=== PATIENT | female | born 1960 | race Caucasian/White ===

== ENCOUNTER 2024-08-25 07:59 | Outpatient (REF) | payer BC, SELFPAY ==
--- OUTSIDE RECORDS SUMMARY | 2024-08-25 08:06 | XMS_ITS | Patient Health Record ---
Author Organization [facility] [address] Address [address] [place] [address] Care Team Providers Care Regional Facilities Manager Name Role Phone YANG, LANCEBRYSON Primary Care Provider ZHANE VILLEDA Unavailable [phone] SARAH VALDIVIA Unavailable [phone] Allergies Allergen (clinical drug ingredient) Drug/Non Drug Allergy documented on EMR Reaction Allergy Type Onset Date Status penicillin G Penicillin G Sodium Unknown Drug Allergy Active Results Component Value Reference Range Notes MR Brain WO Reviewed date:09/21/2023 09:57:49 AM Interpretation: Performing Lab: Notes/Report: Original Ordering Provider: ZHANE VILLEDA [employer] INSPECTOR [facility] US ABDOMEN LIMITED Reviewed date:05/22/2024 01:16:26 PM Interpretation: Performing Lab: Notes/Report: Note See Note [facility], a member of [employer] Patient Name: ANNETTE JOHNSON Date of : 1960 Reason for Exam: Right upper quadrant abdominal pain, fatty liver Exam Date: 05/22/2024 [id number] EST Report Status: Final Ordering Provider: LSIA CHAHAL PCP: SARAH VALDIVIA Exam: Right upper quadrant abdominal ultrasound History: Right upper quadrant abdominal pain, fatty liver Technique: Ledbetter scal e and color Doppler imaging was utilized. Comparison: None FINDINGS: Liver: Increased in echotexture. Liver measures 17.7 cm.There is no evidence of intrahepatic biliary ductal dilation. There is no ascites. Gallbladder: status post cholecystectomy Common bile duct: measures 0.4 cm. Right kidney: measur es 13.1 cm in length and is sonographically unremarkable. There is no hydronephrosis. Pancreas: The visualized pancreatic parenchyma is unremarkable. The pancreatic head and tail were not visualized due to overlying bowel gas. IMPRESSION: Hepatic steatosis -------- FINAL REPOR T -------- Dictated By: Audra Nam Dictated Date: 05/22/2024 09:42 ET Assigned Physician: Audra Nam Reviewed and Electronically Signed By: Adura Nam Signed Date: 025 10:02 ET Workstation ID: [id number] Transcribed By: Self Edit Transcribed Date: 05/22/2024 09:42 ET MICROALBUMIN CREATININE URIN E RATIO Reviewed date:01/20/2024 11:00:40 AM Interpretation: Performing Lab: Notes/Report: Creatinine, Urine 96.0 Microalb, Ur 103.0 0.0-29.0 mg/L Microalb/Creat Ratio 107 <30 mg/g creat HEMOGLOBIN A1C Reviewed date:01/10/2024 11:52:34 AM Interpretation: Performing Lab: Notes/Report: Hemoglobin A1C 6.7 <6.5 % Mean Bld Glu Estim. 146 THYROID STIMULATING HORMONE WITH REFLEX TO FREE T4 AND FREE T3 Reviewed date:01/16/2024 11:43:03 AM Interpretation: Performing Lab: Notes/Report: TSH 0.57 0.40-4.00 mcIU/mL COMPREHENSIVE METABOLIC PANE L Reviewed date:01/16/2024 11:42:43 AM Interpretation: Performing Lab: Notes/Report: Sodium 139 133-145 mmol/L Potassium 4.5 3.5-5.5 mmol/L Chloride 107 96-110 mmol/L CO2 27 21-32 mmol/L Anion Gap 5 3-11 Glucose 127 70-100 mg/dL BUN 17 5-25 mg/dL Creatinine 0.72 0.50-1.10 mg/dL eGFR 95 >=60 mL/min/1.73m2 Calculation based on the?Chronic Kidney Disease Epidemiology Collaboration (CKD-EPI) equation refit?without adjustment for race. BUN/Creatinine Ratio 23.6 Calcium 9.6 8.5-10.5 mg/dL AST (SGOT) 18 10-42 unit/L ALT (SGPT) 30 10-60 unit/L Alkaline Phosphatase 41 42-121 unit/L Total Protein 6.5 6.0-8.0 g/dL Albumin 3.6 3.2-5.0 g/dL Total Bilirubin 0.4 0.0-1.4 mg/dL LIPID PANEL WITH REFLEX TO D IRECT LDL Reviewed date:01/16/2024 11:42:49 AM Interpretation: Performing Lab: Notes/Report: Cholesterol 185 0-200 mg/dL Triglycerides 234 0-150 mg/dL HDL 41 >=40 mg/dL LDL Calculated 97 0-100 mg/dL VLDL Cholesterol Alirio 46.8 Non HDL Chol. (LDL+VLDL) 144 <145 mg/dL Chol/HDL Ratio 4.5 0.0-4.4 CBC WITH AUTO DIFF Reviewed date:10/29/2023 09:48:23 AM Interpretation: Performing Lab: Notes/Report: Original Ordering Provider: ZHANE VILLEDA [employer], [place] [address] Puppy Sitter - Alison Combs MD WBC 6.7 4.8-10.8 x10-3/uL RBC 4.8 3.8-4.8 x10-6/uL HEMOGLOBIN 13.4 11.5-16.0 g/dL HEMATOCRIT 41.8 35-47 % MCV 87.6 79-98 fL MCH 28.1 27-32 pg MCHC 32.1 32-37 g/dL RDW 13.3 11-15 % PLT COUNT 206 130-400 x10-3/uL MEAN PLATELET VOLUME 10.2 7-11 fL NRBC % AUTO 0.0 <1 % NEUT % 54.7 LYMPH % 30.3 MONO % 9.1 EOS % 4.6 BASO % 0.9 IMMATURE GRANULOCYTES % 0.4 NRBC # AUTO 0.00 <0.1 x10-3/uL ABSOLUTE NEUT 3.69 1.5-7.0 x10-3/uL LYMPH # 2.04 1-5.0 x10-3/uL MONO # 0.61 0.2-1.0 x10-3/uL EOS # 0.31 0-0.5 x10-3/uL BASO # 0.06 0-0.2 x10-3/uL IMMATURE GRANULOCYTES # 0.03 0-0.03 x10-3/uL TSH Reviewed date:10/29/2023 10:50:12 AM Interpretation: Performing Lab: Notes/Report: Original Ordering Provider: ZHANE VILLEDA NP TSH 0.92 0.40-4.00 uIU/ml METHYLMALONIC ACID SERUM Reviewed date:11/03/2023 03:20:39 PM Interpretation: Performing Lab: Notes/Report: Note Original Ordering Provider: ZHANE VILLEDA NP [employer], a member of [address] [address] Puppy Sitter - Alison Combs MD METHYLMALONIC ACID 0.16 <0.40 umol/L If applicable, any drug confirmation testing reported here was developed and the performance characteristics determined by [facility]. This confirmation testing has not been cleared or approved by the FDA. The laboratory is regulated under CLIA as qualified to perform high-complexity testing. This test is used for patient testing purposes. It should not be regarded as investigational or for research. Test performed at [facility], [facility] [address] [place] [id number] Lora Nuñez MD, PhD - Puppy Sitter Note Original Ordering Provider: ZHANE VILLEDA NP [employer], a member of [address] [address] Pupp[employer]itter - Alison Combs MD TREPONEMAL AB Reviewed date:10/29/2023 10:50:12 AM Interpretation: Performing Lab: Notes/Report: TREPONEMAL AB NEGATIVE NEGATIVE Note [employer], a member of [address] [address] P[employer]itter - Alison Combs MD Reason For Referral Reason Dr Lou Diagnosis 1 Weakness of left low er extremity (R29.898) Diagnosis 2 Paresthesia of skin (R20.2) Referral Organization [facility] [address] Referring Provider First Name ZHANE Referring Provider Last Name RONAL Referring Provider Speciality Internal M edicine Referred Provider Specialty Neurology General Notes MIGUEL CUADRA 09/06 01:00:56 PM > faxed referral to Dr Lou p: [phone] f: [phone] Referral Priority Routine Reason Pt needing referral to neurology Diagnosis 1 Paresthesia of skin (R20.2) Diagnosis 2 Weakness of left low er extremity (R29.898) Referral Organization [facility] [address] Referring Provider First Name MERCY Referring Provider Last Name YANG Referring Provider Speciality Internal M edicine Referred Provider Specialty Neurology General Notes faxed to , ap mancia M.D , [address] [place] [address] [facility], [facility], fax - [phone], phone- [phone] Clinical Notes Anita Lundy 09/16 02:49:23 PM >, Milton Pierce 10/08/2023 11:50:53 AM > The patient is scheduled for an appointment on Oct 15 at 9 am. Pt is aware Referral Priority Routine Reason Dr. North Diagnosis 1 Abdominal pain, unsp ecified abdominal location (R10.9) [facility] [address] Referring Provider First Name SARAH Referring Provider Last Name SKIP Referring Provider Speciality Internal M edicine Referred Provider Ceasar NORTH Referred Provider Specialty Gastroentero logy General Notes BUTRON CUADRAIYA 04/24 11:10:38 AM > faxed referral to Dr Osborne with office notes & gave pt phone # to call for appt Clinical Notes Milton Pierce 09/2024 03:23:45 PM > The patient was seen on 05/12/24 Referral Priority Routine Medications Medication SIG (Take, Route, Frequency, Duration) Notes Start Date End Date Status Mounjaro 7.5 MG/0.5ML as directed Subcutaneous weekly Active metFORMIN HCl 1000mg bid Activ e Farxiga 5 MG Oral for 90 Days Active Fenofibrate 145 mg TAKE 1 TABLET DAILY oral daily for 90 days Active Metoprolol Tartrate 50 mg TAKE 1 TABLET DAILY WITH FOOD Active CeleBREX 200 MG 1 capsule with food Orally Once a day for 10 days Active Citalopram Hydrobromide 10 MG 1 tablet Orally Once a day for 30 days take with 20mg tablet for a total of 30mg once daily 02/24/2024 Not-Taking Fish Oil 1000 MG 1 capsule Orally Three times a day Active Citalopram Hydrobromide 20 MG 1 tablet Orally Once a day for 30 days 02/24/2024 Not-Taking Vitamin B12 100 MCG as directed Orally Active Citalopram Hydrobromide 30 MG 1 tablet Orally Once a day for 30 days 09/29/2020 Not-Taking Atorvastatin Calcium 40 mg TAKE 1 TABLET DAILY Not-Taki ng Claritin 10 MG 1 tablet Orally Once a day Not-Taking Fluticasone Propionate 50 MCG/ACT 1 spray in each nostril Nasally Once a day for 30 days Not-Taking Lisinopril 40 mg TAKE 1 TABLET DAILY Active Immunizations Vaccine Route Administration Date Status Comme nts influenza IM Intramuscular 12/07/2019 Administered SHINGRIX IM Intramuscular 03/25/2023 Administered Social History Tobacco Use: Social History Observation Description Date Details (start date - stop date) Former Smoker NA - NA Tobacco Use/Smoking Question Answer Notes Are you a former smoker Problems Problem Type SNOMED Code ICD Code Onset Dates Problem Status W/U Status Risk Notes Problem Hypothyroidism (18456362) Hypothyroidism, unspecified (E03.9) Active confirmed Problem 06991319 Type 2 diabetes mellitus with unspecified complications (E11.8) Active confirmed Problem Type II diabetes mellitus without complication (643341157) Type 2 diabetes mellitus without complications (E11.9) Active confirmed Problem 63593542 Vitamin D defici ency, unspecified (E55.9) Active confirmed Problem 368687695 Mixed hyperlipid emia (E78.2) Active confirmed Problem Hyperlipidemia (01149841) Hyperlipidemia, unspecified (E78.5) Active confirmed Problem Fear of flying (095477567) 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) Active confirmed Problem Essential hypertension (63278121) Essential (primary) hypertension (I10) Active confirmed Problem Fatty liver (426955130) Fatty (change of) liver, not elsewhere classified (K76.0) Active confirmed Problem Osteoarthritis of knee (095228127) Osteoarthritis of knee, unspecified (M17.9) Active confirmed Problem 93720164 Paresthesia of s kin (R20.2) Active confirmed Problem Adult health examination (507183331) Encounter for general adult medical examination without abnormal findings (Z00.00) Active confirmed Problem Colon cancer screening (756038086) Colon cancer screening (Z12.11) Active confirmed Problem 38637442 Hyperlipidemia, unspecified hyperlipidemia type (E78.5) Active confirmed Problem Anxiety (34687066) Anxiety (F41.9) Active confirmed Problem 26863936 Memory loss (R41.3) Active confirmed Problem 04986817 Abdominal pain, unspecified abdominal location (R10.9) Active confirmed Problem 152637146 Seasonal allergi es (J30.2) Active confirmed Problem 117317589 Pre-diabetes (R73.03) Active confirme d Problem Arthritis of left knee (8903722034712951 ) Arthritis of knee, left (M17.12) Active confirmed Problem Suspected disease caused by Severe acute respiratory coronavirus 2 (situation) (511742891) Encounter for screening for COVID-19 (Z11.52) Active confirmed Problem 195221986 Hypertriglycerid emia (E78.1) Active confirmed Problem Asthma (731386260) Asthma (J45.909) Active confirmed Problem 874438331 Multinodular goi ter (E04.2) Active confirmed Problem 273447369465945 Weakness of left lower extremity (R29.898) Active confirmed Vital Signs Heart Rate 88 /min 04/24/2024 Oximetry 97 % 04/24/2024 Blood pressure diastolic 80 mm Hg 04/24/2024 Height 66 in 04/24/2024 Blood pressure systolic 140 mm Hg 04/24/2024 Weight 162 lbs 04/24/2024 BMI 26.14 kg/m2 04/24/2024 Encounters Encounter Location Date Provider Diagnosis [facility] [address] [place] [address] 09/07/2023 ZHANE VILLEDA Paresthesia of left lower extremity R20.2 ; Weakness of left lower extremity R29.898 and Memory loss R41.3 [facility] [address] [address] 10/30/2023 ZHANE VILLEDA Type 2 diabetes mila itus without complications E11.9 ; Hyperlipidemia, unspecified E78.5 ; Fatty (change of) liver, not elsewhere classified K76.0 ; Anxiety F41.9 ; Hypertriglyceridemia E78.1 ; Vitamin D deficiency, unspecified E55.9 ; Memory loss R41.3 ; Paresthesia of left lower extremity R20.2 ; Encounter for general adult medical examination without abnormal findings Z00.00 and Encounter for screening for other suspected endocrine disorder Z13.29 [facility] [address] [facility] [address] [place] [address] 04/07/2024 SARAH VALDIVIA Myalgia M79.10 ; Typ e 2 diabetes mellitus without complications E11.9 ; Essential (primary) hypertension I10 ; Mixed hyperlipidemia E78.2 ; Seasonal allergies J30.2 and Anxiety F41.9 [facility] [address] [address] 04/24/2024 SARAH VALDIVIA Annual physical exam Z00.00 ; Type 2 diabetes mellitus without complications E11.9 ; Essential (primary) hypertension I10 ; Hypertriglyceridemia E78.1 ; Multinodular goiter E04.2 ; Seasonal allergies J30.2 ; Anxiety F41.9 ; Lumbar back pain M54.50 ; Generalized abdominal pain R10.84 ; Depression screening Z13.31 and Screening for substance abuse Z13.89 [facility] [address] [address] 09/02/2023 ZHANE RONAL Acute non-recurrent frontal sinusitis J01.10 [facility] [address] [address] 09/17/2023 ZHANEERI STANLEYT [facility] [address] [address] 09/23/2023 TALBRYSON KASPERAN [facility] [address] [address] 10/08/2023 TALAL YANG [facility] [address] [address] 10/24/2023 ZHANE LIZETHT [facility] [address] 01/24/2024 ZHANE VILLEDA Type 2 diabetes mila itus without complications E11.9 and Acute non-recurrent frontal sinusitis J01.10 [facility] [address] [address] 01/24/2024 ZHANE SCOUTHORose Marie Acute non-recurrent frontal sinusitis J01.10 [facility] [address] [address] 01/28/2024 ZHANE BORHOT Acute non-recurrent frontal sinusitis J01.10 [facility] [address] [address] 02/21/2024 ZHANE SCOUTHOT Acute non-recurrent frontal sinusitis J01.10 [facility] [address] [address] 02/24/2024 ZHANE STANLEYT [facility] [address] [facility] [address] [place] [address] 02/24/2024 ZHANE STANLEYT [facility] [address] [facility] [address] [place] [address] 03/24/2024 MERCY YANG [facility] [address] [facility] [address] [place] [address] 04/07/2024 ZHANE BUTTERFIELDHOT [facility] [address] [facility] [address] [place] [address] 04/07/2024 ZHANE BUTTERFIELDHOT [facility] [address] [facility] [address] [place] [address] 04/24/2024 SARAH VALDIVIA [facility] [address] [facility] [address] [place] [address] 05/07/2024 SARAH CISNEROSKS [facility] [address] [facility] [address] [place] [address] 05/14/2024 SARAH VALDIVIA [facility] [address] [facility] [address] [place] [address] 06/09/2024 ZHANE VILLEDA Assessments Encounter Date Diagnosis (ICD Code) Assessment Notes Treatment Notes Treatment Clinical Notes Section Notes 04/07/2024 Myalgia (ICD-10 - M79.10) Annette is a 63-year-old female with history of multiple medical conditions including type 2 diabetes, anxiety, arthritis, hyperlipidemia, seasonal allergies, hypertension, hypothyroidism who presents today for urgent care visit for left lower extremity pain for the past several days. Reporting sensation of cramping and increased sensitivity to left calf. Associated left hip pain chronic in nature. Reports no swelling of left lower extremity. No recent surgeries, air travel, or prolonged immobilization. On physical exam patient well-appearing and in no acute distress. Vital signs within normal limits. Cardiopulmonary exam unremarkable. On musculoskeletal exam no visible deformities to lower extremities. Negative straight leg raise test bilaterally. No tenderness to palpation of knees bilaterally. Range of motion performed passively with bilateral hips without tenderness. Bilateral calves without pitting edema or visible swelling and are nontender to palpation. Mild tenderness appreciated upon palpation of left lateral hip area of trochanteric bursa. Given clinical presentation likely suspect uncomplicated myalgia. Low likelihood for DVT given lack of predisposing factors and reassuring physical exam. Less likely to be sciatica given negative straight leg raise test. Likely a superimposing trochanteric bursitis causing hip pain. At this time we will treat symptomatically with Celebrex 200 mg 1 capsule daily for 10 days. Discussed proper use of the medication and potential side effect profile including but not limited to headache, dyspepsia, abdominal pain, diarrhea. Patient has follow-up scheduled with her orthopedist at the end of April for further management. Discussed red flag signs requiring ED evaluation. Patient demonstrates understanding, all questions answered at this time. # Type 2 diabetes: Hemoglobin A1c of 6.7% on 01/07/2024. Continue metformin 1000 mg twice daily. Continue Mounjaro 7.5 mg subcutaneous injection weekly. Discussed importance of diet and lifestyle for management of diabetes. Emphasize importance of annual eye exam and regular feet checks. Will continue to monitor. # Hypertension: Blood pressure stable in office 138/78. Continue lisinopril 40 mg daily. Continue metoprolol 50 mg once daily with food. Discussed red flag signs of hypertension. Will continue to monitor. # Hyperlipidemia: Last lipid panel obtained 01/07/2024 with values including cholesterol 185, triglycerides 234, HDL 41, LDL 97, and cholesterol HDL ratio 4.5. Continue fenofibrate 145 mg once daily. Continue atorvastatin 10 mg daily. Will continue to monitor. # Seasonal allergies: Continue Flonase 1 sprays nostril daily. Continue Claritin 10 mg once daily. Will continue to monitor. # Anxiety: Stable mood in office. Continue escitalopram 30 mg once daily. Will continue to monitor. All questions have been answered to patient's satisfaction. Patient verbalized understanding of diagnosis and treatments explained. Advised to call sooner prior to next visit it any questions/concerns arise. Case discussed with collaborating physician Genaro Yang who reviewed the assessment and plan. Chart, medications, labs, vital signs reviewed. Dictation was accomplished with the use of [employer]ie voice recognition software, which is prone to medical misidentifications and grammatical errors. This are unintentional and the practitioner does try to identify and correct these, but some could still be present. Please do not hesitate to contact practitioner for clarification. 04/24/2024 Type 2 diabetes mellitus without complications (ICD-10 - E11.9) Patient seen and examined. Comprehensive discussion was done on the following. # Type 2 diabetes: Hemoglobin A1c of 6.7% on 01/07/2024. Continue metformin 1000 mg twice daily. Continue Mounjaro 7.5 mg subcutaneous injection weekly. Continue Farxiga 5 mg daily. Patient has follow-up every 6 months with endocrinology who also manages her diabetes. Discussed importance of diet and lifestyle for management of diabetes. Emphasize importance of annual eye exam and regular feet checks. Will continue to monitor. # Hypertension: Blood pressure stable in office 140/80. At beginning of visit blood pressure was elevated 162/78. Reports compliance with blood pressure medications. Did have a cup of coffee prior to her visit. Asymptomatic without chest pain, shortness of breath, diaphoresis, or dizziness. Continue lisinopril 40 mg daily. Continue metoprolol 50 mg once daily with food. Discussed red flag signs of hypertension. Will continue to monitor. # Hyperlipidemia: Last lipid panel obtained 01/07/2024 with values including cholesterol 185, triglycerides 234, HDL 41, LDL 97, and cholesterol HDL ratio 4.5. Continue fenofibrate 145 mg once daily. Continue atorvastatin 10 mg daily. Will continue to monitor. # Seasonal allergies: Continue Flonase 1 sprays nostril daily. Continue Claritin 10 mg once daily. Will continue to monitor. # Anxiety: Stable mood in office. Continue escitalopram 30 mg once daily. Will continue to monitor. # Myalgia: Patient seen in office for urgent visit on 04/07/2024, reporting left extremity pain for several days. No red flag signs concerning for DVT. Prescribed Celebrex 200 mg 1 capsule with food daily for 10 days. Patient reporting improvement in lower extremity cramping. No longer taking Celebrex however has been using topical magnesium for cramping as well as increasing hydration. Will continue to monitor. # Low back pain: Patient reporting low back pain throughout the day, no particular triggers/patterns and no worsening symptoms. No difficulty with ambulation. No weakness, numbness, or tingling. States that she has orthopedic appointment next week for further evaluation. Will continue to follow. # Multinodular goiter: Patient follows every 6 months with endocrinology. On physical exam enlarged thyroid palpated. Has several stable thyroid nodules, had follow-up with endocrinology in December with repeat ultrasound, will request record. # Anxiety: PHQ-9 administered during visit with score of 18. Patient reporting more predominant anxiety symptoms. She is no longer taking citalopram. Reports minimal support from community. Does have several grandchildren which she experiences anthony from. Reports no SI or HI. She is interested in more natural forms of anxiety treatment. Does use THC as needed for stress relief. We discussed use of cortisone management patient has interest. She states that she will purchase this supplement through [employer] on [address]. She will follow-up in office in 6 months at which time we will reevaluate anxiety. # Abdominal pain: Patient reporting intermittent right-sided abdominal pain along with reflux. On physical exam abdomen is soft to palpation with out significant tenderness in all 4 quadrants. Active bowel sounds appreciated. Patient requesting referral to gastroenterology for further follow-up 1. Nutrition: It is important to follow a healthy diet based on lots of vegetables and legumes and good fat. Avoid processed food and processed carbohydrates. Prepare your own meals. Read labels and avoid high fructose corn syrup, processed chemicals added to increase shelf life and preprepared meals. Avoid fast foods. Eat slowly and plan meals for a week. Try to count calories and be mindful off daily calorie intake. Get into the habit of keeping an eye on your weight by using an appropriate scale. Learn to log exercise and discussed fitness Apps like DocSendpal or DoYouRememberometer which can help keep log off calories taken versus calories burned. Local food should be preferred. Discussed Dirty Dozen Versus Clean Fifteen. Discussed healthy supplements like fish oil, Tumeric, Curcumin, Melatonin, Resveratrol, Probiotics, Vitamin-D, Alpha-Lipoic acid, Vitamin-D and coconut oil. 2. It is important to exercise regularly. Is a good habit to walk at least 30 minutes a day. Gentle weightlifting with standard precautions to protect the back. Finding activity like cycling or hiking and get into the habit of engaging in it. Stretching before and after the exercises important. It is also important to contact me if there are any problems like shortness of breath, chest pain, back pain and joint or muscle pain associated with the exercise. 3. Discussed age appropriate screening guidelines. Colonoscopy needs to start at age 50 with stool for occult blood as appropriate. There is a new test that can test for genetic abnormalities in the stool sample, Cologuard. This would not replace a colonoscopy but could be used as a screening tool for patients who do not want a colonoscopy. We discussed the importance of early detection of colon cancer. 4. Discussed current guidelines with respect to breast examination, mammogram and pap smear for early detection of breast and cervical cancer. Patient advised to follow up with these appointments. 5. Discussed safe driving and no use of smart phone while driving 6. Age-appropriate immunizations were discussed. A tetanus booster is needed every 10 years. Flu vaccine is recommended every year just before the start of the flu season. Shingles vaccine is recommended after age 50 but not all insurances cover it. Pneumonia vaccine is given after age 65 unless there are certain comorbidities for which it is started earlier. 7. Diagnostic labs were discussed. These could include/not limited to CBC CMP and lipids with fasting blood glucose and insulin levels. Vitamin D and hemoglobin A1c testing might be appropriate. All questions have been answered to patient's satisfaction. Patient verbalized understanding of diagnosis and treatments explained. Advised to call sooner prior to next visit it any questions/concerns arise. Case discussed with collaborating physician Genaro Yang who reviewed the assessment and plan. Chart, medications, labs, vital signs reviewed. Dictation was accomplished with the use of [employer] voice recognition software, which is prone to medical misidentifications and grammatical errors. This are unintentional and the practitioner does try to identify and correct these, but some could still be present. Please do not hesitate to contact practitioner for clarification. 01/24/2024 Type 2 diabetes mellitus without complications (ICD-10 - E11.9) 01/24/2024 Acute non-recurrent frontal sinusitis (ICD-10 - J01.10) 01/28/2024 Acute non-recurrent frontal sinusitis (ICD-10 - J01.10) 02/21/2024 Acute non-recurrent frontal sinusitis (ICD-10 - J01.10) 04/07/2024 Type 2 diabetes mellitus without complications (ICD-10 - E11.9) Annette is a 63-year-old female with history of multiple medical conditions including type 2 diabetes, anxiety, arthritis, hyperlipidemia, seasonal allergies, hypertension, hypothyroidism who presents today for urgent care visit for left lower extremity pain for the past several days. Reporting sensation of cramping and increased sensitivity to left calf. Associated left hip pain chronic in nature. Reports no swelling of left lower extremity. No recent surgeries, air travel, or prolonged immobilization. On physical exam patient well-appearing and in no acute distress. Vital signs within normal limits. Cardiopulmonary exam unremarkable. On musculoskeletal exam no visible deformities to lower extremities. Negative straight leg raise test bilaterally. No tenderness to palpation of knees bilaterally. Range of motion performed passively with bilateral hips without tenderness. Bilateral calves without pitting edema or visible swelling and are nontender to palpation. Mild tenderness appreciated upon palpation of left lateral hip area of trochanteric bursa. Given clinical presentation likely suspect uncomplicated myalgia. Low likelihood for DVT given lack of predisposing factors and reassuring physical exam. Less likely to be sciatica given negative straight leg raise test. Likely a superimposing trochanteric bursitis causing hip pain. At this time we will treat symptomatically with Celebrex 200 mg 1 capsule daily for 10 days. Discussed proper use of the medication and potential side effect profile including but not limited to headache, dyspepsia, abdominal pain, diarrhea. Patient has follow-up scheduled with her orthopedist at the end of April for further management. Discussed red flag signs requiring ED evaluation. Patient demonstrates understanding, all questions answered at this time. # Type 2 diabetes: Hemoglobin A1c of 6.7% on 01/07/2024. Continue metformin 1000 mg twice daily. Continue Mounjaro 7.5 mg subcutaneous injection weekly. Discussed importance of diet and lifestyle for management of diabetes. Emphasize importance of annual eye exam and regular feet checks. Will continue to monitor. # Hypertension: Blood pressure stable in office 138/78. Continue lisinopril 40 mg daily. Continue metoprolol 50 mg once daily with food. Discussed red flag signs of hypertension. Will continue to monitor. # Hyperlipidemia: Last lipid panel obtained 01/07/2024 with values including cholesterol 185, triglycerides 234, HDL 41, LDL 97, and cholesterol HDL ratio 4.5. Continue fenofibrate 145 mg once daily. Continue atorvastatin 10 mg daily. Will continue to monitor. # Seasonal allergies: Continue Flonase 1 sprays nostril daily. Continue Claritin 10 mg once daily. Will continue to monitor. # Anxiety: Stable mood in office. Continue escitalopram 30 mg once daily. Will continue to monitor. All questions have been answered to patient's satisfaction. Patient verbalized understanding of diagnosis and treatments explained. Advised to call sooner prior to next visit it any questions/concerns arise. Case discussed with collaborating physician Genaro Yang who reviewed the assessment and plan. Chart, medications, labs, vital signs reviewed. Dictation was accomplished with the use of [employer] voice recognition software, which is prone to medical misidentifications and grammatical errors. This are unintentional and the practitioner does try to identify and correct these, but some could still be present. Please do not hesitate to contact practitioner for clarification. 09/02/2023 Acute non-recurrent frontal sinusitis (ICD-10 - J01.10) 09/07/2023 Paresthesia of left lower extremity (ICD-10 - R20.2) We discussed natural methods such as vitamin B12 and alpha lipoic acid to help with neuropathy and memory Will refer to neurology for further evaluation, EMG and nerve conduction studies perhaps Will get an MRI of the brain without Will check some labs including RPR, methylmalonic acid, B12, and other comprehensive labs Patient is in agreement with this Of note, some information is being carried forward from prior records for informational purposes only and is being cited so that efficiency, safety and quality of the patient's care is not compromised This note was prepared using voice recognition software and direct typing Please excuse inadvertent journeyman sheet metal worker or typing errors, or uncorrected word substitutions Although every attempt has been made by the provider to proofread this document, occasional misspellings and typographical errors may still be present Due to the previous pandemic, and the use of personal protective equipment (PPE) This may decrease voice recognition accuracy Inadvertent journeyman sheet metal worker errors may occur 09/07/2023 Weakness of left low er extremity (ICD-10 - R29.898) We discussed natural methods such as vitamin B12 and alpha lipoic acid to help with neuropathy and memory Will refer to neurology for further evaluation, EMG and nerve conduction studies perhaps Will get an MRI of the brain without Will check some labs including RPR, methylmalonic acid, B12, and other comprehensive labs Patient is in agreement with this Of note, some information is being carried forward from prior records for informational purposes only and is being cited so that efficiency, safety and quality of the patient's care is not compromised This note was prepared using voice recognition software and direct typing Please excuse inadvertent journeyman sheet metal worker or typing errors, or uncorrected word substitutions Although every attempt has been made by the provider to proofread this document, occasional misspellings and typographical errors may still be present Due to the previous pandemic, and the use of personal protective equipment (PPE) This may decrease voice recognition accuracy Inadvertent journeyman sheet metal worker errors may occur 10/30/2023 Type 2 diabetes mellitus without complications (ICD-10 - E11.9) Patient is here for Chronic Disease Management follow-up visit Acute Concerns/Problem List: 10/30/2023 Stable glycemic index, hemoglobin A1c 6.6 Neurology attributing most of her symptoms and memory issues due to stress and anxiety Will increase citalopram to 30 mg Ativan is seldom used We did complete FMLA paperwork today completing took about 30 minutes from start to finish, chart review coordination of care ASCVD is a stepwise approach for all adult patients, including those with known ASCVD This risk estimate is a standardized guideline to predict risk and recommend management strategies for those at risk of ASCVD Risk of cardiovascular event (Coronary or stroke or nonfatal ND or stroke) In the next 10 years We discussed the role of cholesterol and atherosclerosis. Cholesterols broken down into some particles. Cholesterol very important for her body and has an important role in the synthesis of various hormones and neurotransmitters. However, today's cholesterol can have potential complications. Small density LDL particles that are oxidized or particularly dangerous. HDL cholesterol can have a protective effect. Elevated triglycerides levels are also dangerous. An elevated triglyceride and HDL ratio could be a sign of insulin resistance. Statins, fibrates, niacin, fish oil, DHEA, can be beneficial in treatment of dyslipidemia. Lifestyle modification with exercise and appropriate nutrition can decrease the risk of atherosclerosis due to dyslipidemia. Reviewed with patient the importance of medication and treatment plan compliance with BP goal of less then 140/90 per JNC 8 guidelines based on patient's age. This will ensure optimal health outcomes and prevent target organ damage. Made aware that uncontrolled hypertension may be silent and result in a stroke, heart attack, renal failure or even . Discussed the rationale for individualized medication regimen and the effects of their BP. Instructed to seek emergent care if the patient develops a headache, blurry vision, dizziness, chest pain or pressure. Of note, some information is being carried forward from prior records for informational purposes only and is being cited so that efficiency, safety and quality of the patient's care is not compromised This note was prepared using voice recognition software and direct typing Please excuse inadvertent journeyman sheet metal worker or typing errors, or uncorrected word substitutions Although every attempt has been made by the provider to proofread this document, occasional misspellings and typographical errors may still be present Due to the previous pandemic, and the use of personal protective equipment (PPE) This may decrease voice recognition accuracy Inadvertent journeyman sheet metal worker errors may occur 04/24/2024 Annual physical exam (ICD-10 - Z00.00) Patient seen and examined. Comprehensive discussion was done on the following. # Type 2 diabetes: Hemoglobin A1c of 6.7% on 01/07/2024. Continue metformin 1000 mg twice daily. Continue Mounjaro 7.5 mg subcutaneous injection weekly. Continue Farxiga 5 mg daily. Patient has follow-up every 6 months with endocrinology who also manages her diabetes. Discussed importance of diet and lifestyle for management of diabetes. Emphasize importance of annual eye exam and regular feet checks. Will continue to monitor. # Hypertension: Blood pressure stable in office 140/80. At beginning of visit blood pressure was elevated 162/78. Reports compliance with blood pressure medications. Did have a cup of coffee prior to her visit. Asymptomatic without chest pain, shortness of breath, diaphoresis, or dizziness. Continue lisinopril 40 mg daily. Continue metoprolol 50 mg once daily with food. Discussed red flag signs of hypertension. Will continue to monitor. # Hyperlipidemia: Last lipid panel obtained 01/07/2024 with values including cholesterol 185, triglycerides 234, HDL 41, LDL 97, and cholesterol HDL ratio 4.5. Continue fenofibrate 145 mg once daily. Continue atorvastatin 10 mg daily. Will continue to monitor. # Seasonal allergies: Continue Flonase 1 sprays nostril daily. Continue Claritin 10 mg once daily. Will continue to monitor. # Anxiety: Stable mood in office. Continue escitalopram 30 mg once daily. Will continue to monitor. # Myalgia: Patient seen in office for urgent visit on 04/07/2024, reporting left extremity pain for several days. No red flag signs concerning for DVT. Prescribed Celebrex 200 mg 1 capsule with food daily for 10 days. Patient reporting improvement in lower extremity cramping. No longer taking Celebrex however has been using topical magnesium for cramping as well as increasing hydration. Will continue to monitor. # Low back pain: Patient reporting low back pain throughout the day, no particular triggers/patterns and no worsening symptoms. No difficulty with ambulation. No weakness, numbness, or tingling. States that she has orthopedic appointment next week for further evaluation. Will continue to follow. # Multinodular goiter: Patient follows every 6 months with endocrinology. On physical exam enlarged thyroid palpated. Has several stable thyroid nodules, had follow-up with endocrinology in December with repeat ultrasound, will request record. # Anxiety: PHQ-9 administered during visit with score of 18. Patient reporting more predominant anxiety symptoms. She is no longer taking citalopram. Reports minimal support from community. Does have several grandchildren which she experiences anthony from. Reports no SI or HI. She is interested in more natural forms of anxiety treatment. Does use THC as needed for stress relief. We discussed use of cortisone management patient has interest. She states that she will purchase this supplement through [employer] on [address]. She will follow-up in office in 6 months at which time we will reevaluate anxiety. # Abdominal pain: Patient reporting intermittent right-sided abdominal pain along with reflux. On physical exam abdomen is soft to palpation with out significant tenderness in all 4 quadrants. Active bowel sounds appreciated. Patient requesting referral to gastroenterology for further follow-up 1. Nutrition: It is important to follow a healthy diet based on lots of vegetables and legumes and good fat. Avoid processed food and processed carbohydrates. Prepare your own meals. Read labels and avoid high fructose corn syrup, processed chemicals added to increase shelf life and preprepared meals. Avoid fast foods. Eat slowly and plan meals for a week. Try to count calories and be mindful off daily calorie intake. Get into the habit of keeping an eye on your weight by using an appropriate scale. Learn to log exercise and discussed fitness Apps like [employer] or [employer]Remember[employer] which can help keep log off calories taken versus calories burned. Local food should be preferred. Discussed Dirty Dozen Versus Clean Fifteen. Discussed healthy supplements like fish oil, Tumeric, Curcumin, Melatonin, Resveratrol, Probiotics, Vitamin-D, Alpha-Lipoic acid, Vitamin-D and coconut oil. 2. It is important to exercise regularly. Is a good habit to walk at least 30 minutes a day. Gentle weightlifting with standard precautions to protect the back. Finding activity like cycling or hiking and get into the habit of engaging in it. Stretching before and after the exercises important. It is also important to contact me if there are any problems like shortness of breath, chest pain, back pain and joint or muscle pain associated with the exercise. 3. Discussed age appropriate screening guidelines. Colonoscopy needs to start at age 50 with stool for occult blood as appropriate. There is a new test that can test for genetic abnormalities in the stool sample, Cologuard. This would not replace a colonoscopy but could be used as a screening tool for patients who do not want a colonoscopy. We discussed the importance of early detection of colon cancer. 4. Discussed current guidelines with respect to breast examination, mammogram and pap smear for early detection of breast and cervical cancer. Patient advised to follow up with these appointments. 5. Discussed safe driving and no use of smart phone while driving 6. Age-appropriate immunizations were discussed. A tetanus booster is needed every 10 years. Flu vaccine is recommended every year just before the start of the flu season. Shingles vaccine is recommended after age 50 but not all insurances cover it. Pneumonia vaccine is given after age 65 unless there are certain comorbidities for which it is started earlier. 7. Diagnostic labs were discussed. These could include/not limited to CBC CMP and lipids with fasting blood glucose and insulin levels. Vitamin D and hemoglobin A1c testing might be appropriate. All questions have been answered to patient's satisfaction. Patient verbalized understanding of diagnosis and treatments explained. Advised to call sooner prior to next visit it any questions/concerns arise. Case discussed with collaborating physician Genaro Yang who reviewed the assessment and plan. Chart, medications, labs, vital signs reviewed. Dictation was accomplished with the use of [employer] voice recognition software, which is prone to medical misidentifications and grammatical errors. This are unintentional and the practitioner does try to identify and correct these, but some could still be present. Please do not hesitate to contact practitioner for clarification. 10/30/2023 Hyperlipidemia, unspecified (ICD-10 - E78.5) Patient is here for Chronic Disease Management follow-up visit Acute Concerns/Problem List: 10/30/2023 Stable glycemic index, hemoglobin A1c 6.6 Neurology attributing most of her symptoms and memory issues due to stress and anxiety Will increase citalopram to 30 mg Ativan is seldom used We did complete [place] paperwork today completing took about 30 minutes from start to finish, chart review coordination of care ASCVD is a stepwise approach for all adult patients, including those with known ASCVD This risk estimate is a standardized guideline to predict risk and recommend management strategies for those at risk of ASCVD Risk of cardiovascular event (Coronary or stroke or nonfatal ND or stroke) In the next 10 years We discussed the role of cholesterol and atherosclerosis. Cholesterols broken down into some particles. Cholesterol very important for her body and has an important role in the synthesis of various hormones and neurotransmitters. However, today's cholesterol can have potential complications. Small density LDL particles that are oxidized or particularly dangerous. HDL cholesterol can have a protective effect. Elevated triglycerides levels are also dangerous. An elevated triglyceride and HDL ratio could be a sign of insulin resistance. Statins, fibrates, niacin, fish oil, DHEA, can be beneficial in treatment of dyslipidemia. Lifestyle modification with exercise and appropriate nutrition can decrease the risk of atherosclerosis due to dyslipidemia. Reviewed with patient the importance of medication and treatment plan compliance with BP goal of less then 140/90 per JNC 8 guidelines based on patient's age. This will ensure optimal health outcomes and prevent target organ damage. Made aware that uncontrolled hypertension may be silent and result in a stroke, heart attack, renal failure or even . Discussed the rationale for individualized medication regimen and the effects of their BP. Instructed to seek emergent care if the patient develops a headache, blurry vision, dizziness, chest pain or pressure. Of note, some information is being carried forward from prior records for informational purposes only and is being cited so that efficiency, safety and quality of the patient's care is not compromised This note was prepared using voice recognition software and direct typing Please excuse inadvertent journeyman sheet metal worker or typing errors, or uncorrected word substitutions Although every attempt has been made by the provider to proofread this document, occasional misspellings and typographical errors may still be present Due to the previous pandemic, and the use of personal protective equipment (PPE) This may decrease voice recognition accuracy Inadvertent journeyman sheet metal worker errors may occur 09/07/2023 Memory loss (ICD-10 - R41.3) We discussed natural methods such as vitamin B12 and alpha lipoic acid to help with neuropathy and memory Will refer to neurology for further evaluation, EMG and nerve conduction studies perhaps Will get an MRI of the brain without Will check some labs including RPR, methylmalonic acid, B12, and other comprehensive labs Patient is in agreement with this Of note, some information is being carried forward from prior records for informational purposes only and is being cited so that efficiency, safety and quality of the patient's care is not compromised This note was prepared using voice recognition software and direct typing Please excuse inadvertent journeyman sheet metal worker or typing errors, or uncorrected word substitutions Although every attempt has been made by the provider to proofread this document, occasional misspellings and typographical errors may still be present Due to the previous pandemic, and the use of personal protective equipment (PPE) This may decrease voice recognition accuracy Inadvertent journeyman sheet metal worker errors may occur 01/24/2024 Acute non-recurrent frontal sinusitis (ICD-10 - J01.10) 04/07/2024 Essential (primary) hypertension (ICD-10 - I10) Annette is a 63-year-old female with history of multiple medical conditions including type 2 diabetes, anxiety, arthritis, hyperlipidemia, seasonal allergies, hypertension, hypothyroidism who presents today for urgent care visit for left lower extremity pain for the past several days. Reporting sensation of cramping and increased sensitivity to left calf. Associated left hip pain chronic in nature. Reports no swelling of left lower extremity. No recent surgeries, air travel, or prolonged immobilization. On physical exam patient well-appearing and in no acute distress. Vital signs within normal limits. Cardiopulmonary exam unremarkable. On musculoskeletal exam no visible deformities to lower extremities. Negative straight leg raise test bilaterally. No tenderness to palpation of knees bilaterally. Range of motion performed passively with bilateral hips without tenderness. Bilateral calves without pitting edema or visible swelling and are nontender to palpation. Mild tenderness appreciated upon palpation of left lateral hip area of trochanteric bursa. Given clinical presentation likely suspect uncomplicated myalgia. Low likelihood for DVT given lack of predisposing factors and reassuring physical exam. Less likely to be sciatica given negative straight leg raise test. Likely a superimposing trochanteric bursitis causing hip pain. At this time we will treat symptomatically with Celebrex 200 mg 1 capsule daily for 10 days. Discussed proper use of the medication and potential side effect profile including but not limited to headache, dyspepsia, abdominal pain, diarrhea. Patient has follow-up scheduled with her orthopedist at the end of April for further management. Discussed red flag signs requiring ED evaluation. Patient demonstrates understanding, all questions answered at this time. # Type 2 diabetes: Hemoglobin A1c of 6.7% on 01/07/2024. Continue metformin 1000 mg twice daily. Continue Mounjaro 7.5 mg subcutaneous injection weekly. Discussed importance of diet and lifestyle for management of diabetes. Emphasize importance of annual eye exam and regular feet checks. Will continue to monitor. # Hypertension: Blood pressure stable in office 138/78. Continue lisinopril 40 mg daily. Continue metoprolol 50 mg once daily with food. Discussed red flag signs of hypertension. Will continue to monitor. # Hyperlipidemia: Last lipid panel obtained 01/07/2024 with values including cholesterol 185, triglycerides 234, HDL 41, LDL 97, and cholesterol HDL ratio 4.5. Continue fenofibrate 145 mg once daily. Continue atorvastatin 10 mg daily. Will continue to monitor. # Seasonal allergies: Continue Flonase 1 sprays nostril daily. Continue Claritin 10 mg once daily. Will continue to monitor. # Anxiety: Stable mood in office. Continue escitalopram 30 mg once daily. Will continue to monitor. All questions have been answered to patient's satisfaction. Patient verbalized understanding of diagnosis and treatments explained. Advised to call sooner prior to next visit it any questions/concerns arise. Case discussed with collaborating physician Genaro Yang who reviewed the assessment and plan. Chart, medications, labs, vital signs reviewed. Dictation was accomplished with the use of [employer] voice recognition software, which is prone to medical misidentifications and grammatical errors. This are unintentional and the practitioner does try to identify and correct these, but some could still be present. Please do not hesitate to contact practitioner for clarification. 04/24/2024 Essential (primary) hypertension (ICD-10 - I10) Patient seen and examined. Comprehensive discussion was done on the following. # Type 2 diabetes: Hemoglobin A1c of 6.7% on 01/07/2024. Continue metformin 1000 mg twice daily. Continue Mounjaro 7.5 mg subcutaneous injection weekly. Continue Farxiga 5 mg daily. Patient has follow-up every 6 months with endocrinology who also manages her diabetes. Discussed importance of diet and lifestyle for management of diabetes. Emphasize importance of annual eye exam and regular feet checks. Will continue to monitor. # Hypertension: Blood pressure stable in office 140/80. At beginning of visit blood pressure was elevated 162/78. Reports compliance with blood pressure medications. Did have a cup of coffee prior to her visit. Asymptomatic without chest pain, shortness of breath, diaphoresis, or dizziness. Continue lisinopril 40 mg daily. Continue metoprolol 50 mg once daily with food. Discussed red flag signs of hypertension. Will continue to monitor. # Hyperlipidemia: Last lipid panel obtained 01/07/2024 with values including cholesterol 185, triglycerides 234, HDL 41, LDL 97, and cholesterol HDL ratio 4.5. Continue fenofibrate 145 mg once daily. Continue atorvastatin 10 mg daily. Will continue to monitor. # Seasonal allergies: Continue Flonase 1 sprays nostril daily. Continue Claritin 10 mg once daily. Will continue to monitor. # Anxiety: Stable mood in office. Continue escitalopram 30 mg once daily. Will continue to monitor. # Myalgia: Patient seen in office for urgent visit on 04/07/2024, reporting left extremity pain for several days. No red flag signs concerning for DVT. Prescribed Celebrex 200 mg 1 capsule with food daily for 10 days. Patient reporting improvement in lower extremity cramping. No longer taking Celebrex however has been using topical magnesium for cramping as well as increasing hydration. Will continue to monitor. # Low back pain: Patient reporting low back pain throughout the day, no particular triggers/patterns and no worsening symptoms. No difficulty with ambulation. No weakness, numbness, or tingling. States that she has orthopedic appointment next week for further evaluation. Will continue to follow. # Multinodular goiter: Patient follows every 6 months with endocrinology. On physical exam enlarged thyroid palpated. Has several stable thyroid nodules, had follow-up with endocrinology in December with repeat ultrasound, will request record. # Anxiety: PHQ-9 administered during visit with score of 18. Patient reporting more predominant anxiety symptoms. She is no longer taking citalopram. Reports minimal support from community. Does have several grandchildren which she experiences anthony from. Reports no SI or HI. She is interested in more natural forms of anxiety treatment. Does use THC as needed for stress relief. We discussed use of cortisone management patient has interest. She states that she will purchase this supplement through [employer] on [address]. She will follow-up in office in 6 months at which time we will reevaluate anxiety. # Abdominal pain: Patient reporting intermittent right-sided abdominal pain along with reflux. On physical exam abdomen is soft to palpation with out significant tenderness in all 4 quadrants. Active bowel sounds appreciated. Patient requesting referral to gastroenterology for further follow-up 1. Nutrition: It is important to follow a healthy diet based on lots of vegetables and legumes and good fat. Avoid processed food and processed carbohydrates. Prepare your own meals. Read labels and avoid high fructose corn syrup, processed chemicals added to increase shelf life and preprepared meals. Avoid fast foods. Eat slowly and plan meals for a week. Try to count calories and be mindful off daily calorie intake. Get into the habit of keeping an eye on your weight by using an appropriate scale. Learn to log exercise and discussed fitness Apps like [employer] or DoYouRememberometer which can help keep log off calories taken versus calories burned. Local food should be preferred. Discussed Dirty Dozen Versus Clean Fifteen. Discussed healthy supplements like fish oil, Tumeric, Curcumin, Melatonin, Resveratrol, Probiotics, Vitamin-D, Alpha-Lipoic acid, Vitamin-D and coconut oil. 2. It is important to exercise regularly. Is a good habit to walk at least 30 minutes a day. Gentle weightlifting with standard precautions to protect the back. Finding activity like cycling or hiking and get into the habit of engaging in it. Stretching before and after the exercises important. It is also important to contact me if there are any problems like shortness of breath, chest pain, back pain and joint or muscle pain associated with the exercise. 3. Discussed age appropriate screening guidelines. Colonoscopy needs to start at age 50 with stool for occult blood as appropriate. There is a new test that can test for genetic abnormalities in the stool sample, Cologuard. This would not replace a colonoscopy but could be used as a screening tool for patients who do not want a colonoscopy. We discussed the importance of early detection of colon cancer. 4. Discussed current guidelines with respect to breast examination, mammogram and pap smear for early detection of breast and cervical cancer. Patient advised to follow up with these appointments. 5. Discussed safe driving and no use of smart phone while driving 6. Age-appropriate immunizations were discussed. A tetanus booster is needed every 10 years. Flu vaccine is recommended every year just before the start of the flu season. Shingles vaccine is recommended after age 50 but not all insurances cover it. Pneumonia vaccine is given after age 65 unless there are certain comorbidities for which it is started earlier. 7. Diagnostic labs were discussed. These could include/not limited to CBC CMP and lipids with fasting blood glucose and insulin levels. Vitamin D and hemoglobin A1c testing might be appropriate. All questions have been answered to patient's satisfaction. Patient verbalized understanding of diagnosis and treatments explained. Advised to call sooner prior to next visit it any questions/concerns arise. Case discussed with collaborating physician Genaro Yang who reviewed the assessment and plan. Chart, medications, labs, vital signs reviewed. Dictation was accomplished with the use of [employer] voice recognition software, which is prone to medical misidentifications and grammatical errors. This are unintentional and the practitioner does try to identify and correct these, but some could still be present. Please do not hesitate to contact practitioner for clarification. 04/07/2024 Mixed hyperlipidemia (ICD-10 - E78.2) Annette is a 63-year-old female with history of multiple medical conditions including type 2 diabetes, anxiety, arthritis, hyperlipidemia, seasonal allergies, hypertension, hypothyroidism who presents today for urgent care visit for left lower extremity pain for the past several days. Reporting sensation of cramping and increased sensitivity to left calf. Associated left hip pain chronic in nature. Reports no swelling of left lower extremity. No recent surgeries, air travel, or prolonged immobilization. On physical exam patient well-appearing and in no acute distress. Vital signs within normal limits. Cardiopulmonary exam unremarkable. On musculoskeletal exam no visible deformities to lower extremities. Negative straight leg raise test bilaterally. No tenderness to palpation of knees bilaterally. Range of motion performed passively with bilateral hips without tenderness. Bilateral calves without pitting edema or visible swelling and are nontender to palpation. Mild tenderness appreciated upon palpation of left lateral hip area of trochanteric bursa. Given clinical presentation likely suspect uncomplicated myalgia. Low likelihood for DVT given lack of predisposing factors and reassuring physical exam. Less likely to be sciatica given negative straight leg raise test. Likely a superimposing trochanteric bursitis causing hip pain. At this time we will treat symptomatically with Celebrex 200 mg 1 capsule daily for 10 days. Discussed proper use of the medication and potential side effect profile including but not limited to headache, dyspepsia, abdominal pain, diarrhea. Patient has follow-up scheduled with her orthopedist at the end of April for further management. Discussed red flag signs requiring ED evaluation. Patient demonstrates understanding, all questions answered at this time. # Type 2 diabetes: Hemoglobin A1c of 6.7% on 01/07/2024. Continue metformin 1000 mg twice daily. Continue Mounjaro 7.5 mg subcutaneous injection weekly. Discussed importance of diet and lifestyle for management of diabetes. Emphasize importance of annual eye exam and regular feet checks. Will continue to monitor. # Hypertension: Blood pressure stable in office 138/78. Continue lisinopril 40 mg daily. Continue metoprolol 50 mg once daily with food. Discussed red flag signs of hypertension. Will continue to monitor. # Hyperlipidemia: Last lipid panel obtained 01/07/2024 with values including cholesterol 185, triglycerides 234, HDL 41, LDL 97, and cholesterol HDL ratio 4.5. Continue fenofibrate 145 mg once daily. Continue atorvastatin 10 mg daily. Will continue to monitor. # Seasonal allergies: Continue Flonase 1 sprays nostril daily. Continue Claritin 10 mg once daily. Will continue to monitor. # Anxiety: Stable mood in office. Continue escitalopram 30 mg once daily. Will continue to monitor. All questions have been answered to patient's satisfaction. Patient verbalized understanding of diagnosis and treatments explained. Advised to call sooner prior to next visit it any questions/concerns arise. Case discussed with collaborating physician Genaro Yang who reviewed the assessment and plan. Chart, medications, labs, vital signs reviewed. Dictation was accomplished with the use of [employer] voice recognition software, which is prone to medical misidentifications and grammatical errors. This are unintentional and the practitioner does try to identify and correct these, but some could still be present. Please do not hesitate to contact practitioner for clarification. 10/30/2023 Fatty (change of) liver, not elsewhere classified (ICD-10 - K76.0) Patient is here for Chronic Disease Management follow-up visit Acute Concerns/Problem List: 10/30/2023 Stable glycemic index, hemoglobin A1c 6.6 Neurology attributing most of her symptoms and memory issues due to stress and anxiety Will increase citalopram to 30 mg Ativan is seldom used We did complete [facility] paperwork today completing took about 30 minutes from start to finish, chart review coordination of care ASCVD is a stepwise approach for all adult patients, including those with known ASCVD This risk estimate is a standardized guideline to predict risk and recommend management strategies for those at risk of ASCVD Risk of cardiovascular event (Coronary or stroke or nonfatal ND or stroke) In the next 10 years We discussed the role of cholesterol and atherosclerosis. Cholesterols broken down into some particles. Cholesterol very important for her body and has an important role in the synthesis of various hormones and neurotransmitters. However, today's cholesterol can have potential complications. Small density LDL particles that are oxidized or particularly dangerous. HDL cholesterol can have a protective effect. Elevated triglycerides levels are also dangerous. An elevated triglyceride and HDL ratio could be a sign of insulin resistance. Statins, fibrates, niacin, fish oil, DHEA, can be beneficial in treatment of dyslipidemia. Lifestyle modification with exercise and appropriate nutrition can decrease the risk of atherosclerosis due to dyslipidemia. Reviewed with patient the importance of medication and treatment plan compliance with BP goal of less then 140/90 per JNC 8 guidelines based on patient's age. This will ensure optimal health outcomes and prevent target organ damage. Made aware that uncontrolled hypertension may be silent and result in a stroke, heart attack, renal failure or even . Discussed the rationale for individualized medication regimen and the effects of their BP. Instructed to seek emergent care if the patient develops a headache, blurry vision, dizziness, chest pain or pressure. Of note, some information is being carried forward from prior records for informational purposes only and is being cited so that efficiency, safety and quality of the patient's care is not compromised This note was prepared using voice recognition software and direct typing Please excuse inadvertent journeyman sheet metal worker or typing errors, or uncorrected word substitutions Although every attempt has been made by the provider to proofread this document, occasional misspellings and typographical errors may still be present Due to the previous pandemic, and the use of personal protective equipment (PPE) This may decrease voice recognition accuracy Inadvertent journeyman sheet metal worker errors may occur 04/24/2024 Hypertriglyceridemia (ICD-10 - E78.1) Patient seen and examined. Comprehensive discussion was done on the following. # Type 2 diabetes: Hemoglobin A1c of 6.7% on 01/07/2024. Continue metformin 1000 mg twice daily. Continue Mounjaro 7.5 mg subcutaneous injection weekly. Continue Farxiga 5 mg daily. Patient has follow-up every 6 months with endocrinology who also manages her diabetes. Discussed importance of diet and lifestyle for management of diabetes. Emphasize importance of annual eye exam and regular feet checks. Will continue to monitor. # Hypertension: Blood pressure stable in office 140/80. At beginning of visit blood pressure was elevated 162/78. Reports compliance with blood pressure medications. Did have a cup of coffee prior to her visit. Asymptomatic without chest pain, shortness of breath, diaphoresis, or dizziness. Continue lisinopril 40 mg daily. Continue metoprolol 50 mg once daily with food. Discussed red flag signs of hypertension. Will continue to monitor. # Hyperlipidemia: Last lipid panel obtained 01/07/2024 with values including cholesterol 185, triglycerides 234, HDL 41, LDL 97, and cholesterol HDL ratio 4.5. Continue fenofibrate 145 mg once daily. Continue atorvastatin 10 mg daily. Will continue to monitor. # Seasonal allergies: Continue Flonase 1 sprays nostril daily. Continue Claritin 10 mg once daily. Will continue to monitor. # Anxiety: Stable mood in office. Continue escitalopram 30 mg once daily. Will continue to monitor. # Myalgia: Patient seen in office for urgent visit on 04/07/2024, reporting left extremity pain for several days. No red flag signs concerning for DVT. Prescribed Celebrex 200 mg 1 capsule with food daily for 10 days. Patient reporting improvement in lower extremity cramping. No longer taking Celebrex however has been using topical magnesium for cramping as well as increasing hydration. Will continue to monitor. # Low back pain: Patient reporting low back pain throughout the day, no particular triggers/patterns and no worsening symptoms. No difficulty with ambulation. No weakness, numbness, or tingling. States that she has orthopedic appointment next week for further evaluation. Will continue to follow. # Multinodular goiter: Patient follows every 6 months with endocrinology. On physical exam enlarged thyroid palpated. Has several stable thyroid nodules, had follow-up with endocrinology in December with repeat ultrasound, will request record. # Anxiety: PHQ-9 administered during visit with score of 18. Patient reporting more predominant anxiety symptoms. She is no longer taking citalopram. Reports minimal support from community. Does have several grandchildren which she experiences anthony from. Reports no SI or HI. She is interested in more natural forms of anxiety treatment. Does use THC as needed for stress relief. We discussed use of cortisone management patient has interest. She states that she will purchase this supplement through [employer] on [address]. She will follow-up in office in 6 months at which time we will reevaluate anxiety. # Abdominal pain: Patient reporting intermittent right-sided abdominal pain along with reflux. On physical exam abdomen is soft to palpation with out significant tenderness in all 4 quadrants. Active bowel sounds appreciated. Patient requesting referral to gastroenterology for further follow-up 1. Nutrition: It is important to follow a healthy diet based on lots of vegetables and legumes and good fat. Avoid processed food and processed carbohydrates. Prepare your own meals. Read labels and avoid high fructose corn syrup, processed chemicals added to increase shelf life and preprepared meals. Avoid fast foods. Eat slowly and plan meals for a week. Try to count calories and be mindful off daily calorie intake. Get into the habit of keeping an eye on your weight by using an appropriate scale. Learn to log exercise and discussed fitness Apps like [employer] or [employer]Remember[employer] which can help keep log off calories taken versus calories burned. Local food should be preferred. Discussed Dirty Dozen Versus Clean Fifteen. Discussed healthy supplements like fish oil, Tumeric, Curcumin, Melatonin, Resveratrol, Probiotics, Vitamin-D, Alpha-Lipoic acid, Vitamin-D and coconut oil. 2. It is important to exercise regularly. Is a good habit to walk at least 30 minutes a day. Gentle weightlifting with standard precautions to protect the back. Finding activity like cycling or hiking and get into the habit of engaging in it. Stretching before and after the exercises important. It is also important to contact me if there are any problems like shortness of breath, chest pain, back pain and joint or muscle pain associated with the exercise. 3. Discussed age appropriate screening guidelines. Colonoscopy needs to start at age 50 with stool for occult blood as appropriate. There is a new test that can test for genetic abnormalities in the stool sample, Cologuard. This would not replace a colonoscopy but could be used as a screening tool for patients who do not want a colonoscopy. We discussed the importance of early detection of colon cancer. 4. Discussed current guidelines with respect to breast examination, mammogram and pap smear for early detection of breast and cervical cancer. Patient advised to follow up with these appointments. 5. Discussed safe driving and no use of smart phone while driving 6. Age-appropriate immunizations were discussed. A tetanus booster is needed every 10 years. Flu vaccine is recommended every year just before the start of the flu season. Shingles vaccine is recommended after age 50 but not all insurances cover it. Pneumonia vaccine is given after age 65 unless there are certain comorbidities for which it is started earlier. 7. Diagnostic labs were discussed. These could include/not limited to CBC CMP and lipids with fasting blood glucose and insulin levels. Vitamin D and hemoglobin A1c testing might be appropriate. All questions have been answered to patient's satisfaction. Patient verbalized understanding of diagnosis and treatments explained. Advised to call sooner prior to next visit it any questions/concerns arise. Case discussed with collaborating physician Genaro Yang who reviewed the assessment and plan. Chart, medications, labs, vital signs reviewed. Dictation was accomplished with the use of [employer] voice recognition software, which is prone to medical misidentifications and grammatical errors. This are unintentional and the practitioner does try to identify and correct these, but some could still be present. Please do not hesitate to contact practitioner for clarification. 04/24/2024 Multinodular goiter (ICD-10 - E04.2) Patient seen and examined. Comprehensive discussion was done on the following. # Type 2 diabetes: Hemoglobin A1c of 6.7% on 01/07/2024. Continue metformin 1000 mg twice daily. Continue Mounjaro 7.5 mg subcutaneous injection weekly. Continue Farxiga 5 mg daily. Patient has follow-up every 6 months with endocrinology who also manages her diabetes. Discussed importance of diet and lifestyle for management of diabetes. Emphasize importance of annual eye exam and regular feet checks. Will continue to monitor. # Hypertension: Blood pressure stable in office 140/80. At beginning of visit blood pressure was elevated 162/78. Reports compliance with blood pressure medications. Did have a cup of coffee prior to her visit. Asymptomatic without chest pain, shortness of breath, diaphoresis, or dizziness. Continue lisinopril 40 mg daily. Continue metoprolol 50 mg once daily with food. Discussed red flag signs of hypertension. Will continue to monitor. # Hyperlipidemia: Last lipid panel obtained 01/07/2024 with values including cholesterol 185, triglycerides 234, HDL 41, LDL 97, and cholesterol HDL ratio 4.5. Continue fenofibrate 145 mg once daily. Continue atorvastatin 10 mg daily. Will continue to monitor. # Seasonal allergies: Continue Flonase 1 sprays nostril daily. Continue Claritin 10 mg once daily. Will continue to monitor. # Anxiety: Stable mood in office. Continue escitalopram 30 mg once daily. Will continue to monitor. # Myalgia: Patient seen in office for urgent visit on 04/07/2024, reporting left extremity pain for several days. No red flag signs concerning for DVT. Prescribed Celebrex 200 mg 1 capsule with food daily for 10 days. Patient reporting improvement in lower extremity cramping. No longer taking Celebrex however has been using topical magnesium for cramping as well as increasing hydration. Will continue to monitor. # Low back pain: Patient reporting low back pain throughout the day, no particular triggers/patterns and no worsening symptoms. No difficulty with ambulation. No weakness, numbness, or tingling. States that she has orthopedic appointment next week for further evaluation. Will continue to follow. # Multinodular goiter: Patient follows every 6 months with endocrinology. On physical exam enlarged thyroid palpated. Has several stable thyroid nodules, had follow-up with endocrinology in December with repeat ultrasound, will request record. # Anxiety: PHQ-9 administered during visit with score of 18. Patient reporting more predominant anxiety symptoms. She is no longer taking citalopram. Reports minimal support from community. Does have several grandchildren which she experiences anthony from. Reports no SI or HI. She is interested in more natural forms of anxiety treatment. Does use THC as needed for stress relief. We discussed use of cortisone management patient has interest. She states that she will purchase this supplement through [employer] on [employer]. She will follow-up in office in 6 months at which time we will reevaluate anxiety. # Abdominal pain: Patient reporting intermittent right-sided abdominal pain along with reflux. On physical exam abdomen is soft to palpation with out significant tenderness in all 4 quadrants. Active bowel sounds appreciated. Patient requesting referral to gastroenterology for further follow-up 1. Nutrition: It is important to follow a healthy diet based on lots of vegetables and legumes and good fat. Avoid processed food and processed carbohydrates. Prepare your own meals. Read labels and avoid high fructose corn syrup, processed chemicals added to increase shelf life and preprepared meals. Avoid fast foods. Eat slowly and plan meals for a week. Try to count calories and be mindful off daily calorie intake. Get into the habit of keeping an eye on your weight by using an appropriate scale. Learn to log exercise and discussed fitness Apps like [employer] or DoYouRememberometer which can help keep log off calories taken versus calories burned. Local food should be preferred. Discussed Dirty Dozen Versus Clean Fifteen. Discussed healthy supplements like fish oil, Tumeric, Curcumin, Melatonin, Resveratrol, Probiotics, Vitamin-D, Alpha-Lipoic acid, Vitamin-D and coconut oil. 2. It is important to exercise regularly. Is a good habit to walk at least 30 minutes a day. Gentle weightlifting with standard precautions to protect the back. Finding activity like cycling or hiking and get into the habit of engaging in it. Stretching before and after the exercises important. It is also important to contact me if there are any problems like shortness of breath, chest pain, back pain and joint or muscle pain associated with the exercise. 3. Discussed age appropriate screening guidelines. Colonoscopy needs to start at age 50 with stool for occult blood as appropriate. There is a new test that can test for genetic abnormalities in the stool sample, Cologuard. This would not replace a colonoscopy but could be used as a screening tool for patients who do not want a colonoscopy. We discussed the importance of early detection of colon cancer. 4. Discussed current guidelines with respect to breast examination, mammogram and pap smear for early detection of breast and cervical cancer. Patient advised to follow up with these appointments. 5. Discussed safe driving and no use of smart phone while driving 6. Age-appropriate immunizations were discussed. A tetanus booster is needed every 10 years. Flu vaccine is recommended every year just before the start of the flu season. Shingles vaccine is recommended after age 50 but not all insurances cover it. Pneumonia vaccine is given after age 65 unless there are certain comorbidities for which it is started earlier. 7. Diagnostic labs were discussed. These could include/not limited to CBC CMP and lipids with fasting blood glucose and insulin levels. Vitamin D and hemoglobin A1c testing might be appropriate. All questions have been answered to patient's satisfaction. Patient verbalized understanding of diagnosis and treatments explained. Advised to call sooner prior to next visit it any questions/concerns arise. Case discussed with collaborating physician Genaro Yang who reviewed the assessment and plan. Chart, medications, labs, vital signs reviewed. Dictation was accomplished with the use of Hunie voice recognition software, which is prone to medical misidentifications and grammatical errors. This are unintentional and the practitioner does try to identify and correct these, but some could still be present. Please do not hesitate to contact practitioner for clarification. 04/07/2024 Seasonal allergies (ICD-10 - J30.2) Annette is a 63-year-old female with history of multiple medical conditions including type 2 diabetes, anxiety, arthritis, hyperlipidemia, seasonal allergies, hypertension, hypothyroidism who presents today for urgent care visit for left lower extremity pain for the past several days. Reporting sensation of cramping and increased sensitivity to left calf. Associated left hip pain chronic in nature. Reports no swelling of left lower extremity. No recent surgeries, air travel, or prolonged immobilization. On physical exam patient well-appearing and in no acute distress. Vital signs within normal limits. Cardiopulmonary exam unremarkable. On musculoskeletal exam no visible deformities to lower extremities. Negative straight leg raise test bilaterally. No tenderness to palpation of knees bilaterally. Range of motion performed passively with bilateral hips without tenderness. Bilateral calves without pitting edema or visible swelling and are nontender to palpation. Mild tenderness appreciated upon palpation of left lateral hip area of trochanteric bursa. Given clinical presentation likely suspect uncomplicated myalgia. Low likelihood for DVT given lack of predisposing factors and reassuring physical exam. Less likely to be sciatica given negative straight leg raise test. Likely a superimposing trochanteric bursitis causing hip pain. At this time we will treat symptomatically with Celebrex 200 mg 1 capsule daily for 10 days. Discussed proper use of the medication and potential side effect profile including but not limited to headache, dyspepsia, abdominal pain, diarrhea. Patient has follow-up scheduled with her orthopedist at the end of April for further management. Discussed red flag signs requiring ED evaluation. Patient demonstrates understanding, all questions answered at this time. # Type 2 diabetes: Hemoglobin A1c of 6.7% on 01/07/2024. Continue metformin 1000 mg twice daily. Continue Mounjaro 7.5 mg subcutaneous injection weekly. Discussed importance of diet and lifestyle for management of diabetes. Emphasize importance of annual eye exam and regular feet checks. Will continue to monitor. # Hypertension: Blood pressure stable in office 138/78. Continue lisinopril 40 mg daily. Continue metoprolol 50 mg once daily with food. Discussed red flag signs of hypertension. Will continue to monitor. # Hyperlipidemia: Last lipid panel obtained 01/07/2024 with values including cholesterol 185, triglycerides 234, HDL 41, LDL 97, and cholesterol HDL ratio 4.5. Continue fenofibrate 145 mg once daily. Continue atorvastatin 10 mg daily. Will continue to monitor. # Seasonal allergies: Continue Flonase 1 sprays nostril daily. Continue Claritin 10 mg once daily. Will continue to monitor. # Anxiety: Stable mood in office. Continue escitalopram 30 mg once daily. Will continue to monitor. All questions have been answered to patient's satisfaction. Patient verbalized understanding of diagnosis and treatments explained. Advised to call sooner prior to next visit it any questions/concerns arise. Case discussed with collaborating physician Genaro Yang who reviewed the assessment and plan. Chart, medications, labs, vital signs reviewed. Dictation was accomplished with the use of Dragon voice recognition software, which is prone to medical misidentifications and grammatical errors. This are unintentional and the practitioner does try to identify and correct these, but some could still be present. Please do not hesitate to contact practitioner for clarification. 10/30/2023 Anxiety (ICD-10 - F41.9) Patient is here for Chronic Disease Management follow-up visit Acute Concerns/Problem List: 10/30/2023 Stable glycemic index, hemoglobin A1c 6.6 Neurology attributing most of her symptoms and memory issues due to stress and anxiety Will increase citalopram to 30 mg Ativan is seldom used We did complete FMLA paperwork today completing took about 30 minutes from start to finish, chart review coordination of care ASCVD is a stepwise approach for all adult patients, including those with known ASCVD This risk estimate is a standardized guideline to predict risk and recommend management strategies for those at risk of ASCVD Risk of cardiovascular event (Coronary or stroke or nonfatal ND or stroke) In the next 10 years We discussed the role of cholesterol and atherosclerosis. Cholesterols broken down into some particles. Cholesterol very important for her body and has an important role in the synthesis of various hormones and neurotransmitters. However, today's cholesterol can have potential complications. Small density LDL particles that are oxidized or particularly dangerous. HDL cholesterol can have a protective effect. Elevated triglycerides levels are also dangerous. An elevated triglyceride and HDL ratio could be a sign of insulin resistance. Statins, fibrates, niacin, fish oil, DHEA, can be beneficial in treatment of dyslipidemia. Lifestyle modification with exercise and appropriate nutrition can decrease the risk of atherosclerosis due to dyslipidemia. Reviewed with patient the importance of medication and treatment plan compliance with BP goal of less then 140/90 per JNC 8 guidelines based on patient's age. This will ensure optimal health outcomes and prevent target organ damage. Made aware that uncontrolled hypertension may be silent and result in a stroke, heart attack, renal failure or even . Discussed the rationale for individualized medication regimen and the effects of their BP. Instructed to seek emergent care if the patient develops a headache, blurry vision, dizziness, chest pain or pressure. Of note, some information is being carried forward from prior records for informational purposes only and is being cited so that efficiency, safety and quality of the patient's care is not compromised This note was prepared using voice recognition software and direct typing Please excuse inadvertent journeyman sheet metal worker or typing errors, or uncorrected word substitutions Although every attempt has been made by the provider to proofread this document, occasional misspellings and typographical errors may still be present Due to the previous pandemic, and the use of personal protective equipment (PPE) This may decrease voice recognition accuracy Inadvertent journeyman sheet metal worker errors may occur 10/30/2023 Hypertriglyceridemia (ICD-10 - E78.1) Patient is here for Chronic Disease Management follow-up visit Acute Concerns/Problem List: 10/30/2023 Stable glycemic index, hemoglobin A1c 6.6 Neurology attributing most of her symptoms and memory issues due to stress and anxiety Will increase citalopram to 30 mg Ativan is seldom used We did complete FMLA paperwork today completing took about 30 minutes from start to finish, chart review coordination of care ASCVD is a stepwise approach for all adult patients, including those with known ASCVD This risk estimate is a standardized guideline to predict risk and recommend management strategies for those at risk of ASCVD Risk of cardiovascular event (Coronary or stroke or nonfatal ND or stroke) In the next 10 years We discussed the role of cholesterol and atherosclerosis. Cholesterols broken down into some particles. Cholesterol very important for her body and has an important role in the synthesis of various hormones and neurotransmitters. However, today's cholesterol can have potential complications. Small density LDL particles that are oxidized or particularly dangerous. HDL cholesterol can have a protective effect. Elevated triglycerides levels are also dangerous. An elevated triglyceride and HDL ratio could be a sign of insulin resistance. Statins, fibrates, niacin, fish oil, DHEA, can be beneficial in treatment of dyslipidemia. Lifestyle modification with exercise and appropriate nutrition can decrease the risk of atherosclerosis due to dyslipidemia. Reviewed with patient the importance of medication and treatment plan compliance with BP goal of less then 140/90 per JNC 8 guidelines based on patient's age. This will ensure optimal health outcomes and prevent target organ damage. Made aware that uncontrolled hypertension may be silent and result in a stroke, heart attack, renal failure or even . Discussed the rationale for individualized medication regimen and the effects of their BP. Instructed to seek emergent care if the patient develops a headache, blurry vision, dizziness, chest pain or pressure. Of note, some information is being carried forward from prior records for informational purposes only and is being cited so that efficiency, safety and quality of the patient's care is not compromised This note was prepared using voice recognition software and direct typing Please excuse inadvertent journeyman sheet metal worker or typing errors, or uncorrected word substitutions Although every attempt has been made by the provider to proofread this document, occasional misspellings and typographical errors may still be present Due to the previous pandemic, and the use of personal protective equipment (PPE) This may decrease voice recognition accuracy Inadvertent journeyman sheet metal worker errors may occur 04/07/2024 Anxiety (ICD-10 - F41.9) Annette is a 63-year-old female with history of multiple medical conditions including type 2 diabetes, anxiety, arthritis, hyperlipidemia, seasonal allergies, hypertension, hypothyroidism who presents today for urgent care visit for left lower extremity pain for the past several days. Reporting sensation of cramping and increased sensitivity to left calf. Associated left hip pain chronic in nature. Reports no swelling of left lower extremity. No recent surgeries, air travel, or prolonged immobilization. On physical exam patient well-appearing and in no acute distress. Vital signs within normal limits. Cardiopulmonary exam unremarkable. On musculoskeletal exam no visible deformities to lower extremities. Negative straight leg raise test bilaterally. No tenderness to palpation of knees bilaterally. Range of motion performed passively with bilateral hips without tenderness. Bilateral calves without pitting edema or visible swelling and are nontender to palpation. Mild tenderness appreciated upon palpation of left lateral hip area of trochanteric bursa. Given clinical presentation likely suspect uncomplicated myalgia. Low likelihood for DVT given lack of predisposing factors and reassuring physical exam. Less likely to be sciatica given negative straight leg raise test. Likely a superimposing trochanteric bursitis causing hip pain. At this time we will treat symptomatically with Celebrex 200 mg 1 capsule daily for 10 days. Discussed proper use of the medication and potential side effect profile including but not limited to headache, dyspepsia, abdominal pain, diarrhea. Patient has follow-up scheduled with her orthopedist at the end of April for further management. Discussed red flag signs requiring ED evaluation. Patient demonstrates understanding, all questions answered at this time. # Type 2 diabetes: Hemoglobin A1c of 6.7% on 01/07/2024. Continue metformin 1000 mg twice daily. Continue Mounjaro 7.5 mg subcutaneous injection weekly. Discussed importance of diet and lifestyle for management of diabetes. Emphasize importance of annual eye exam and regular feet checks. Will continue to monitor. # Hypertension: Blood pressure stable in office 138/78. Continue lisinopril 40 mg daily. Continue metoprolol 50 mg once daily with food. Discussed red flag signs of hypertension. Will continue to monitor. # Hyperlipidemia: Last lipid panel obtained 01/07/2024 with values including cholesterol 185, triglycerides 234, HDL 41, LDL 97, and cholesterol HDL ratio 4.5. Continue fenofibrate 145 mg once daily. Continue atorvastatin 10 mg daily. Will continue to monitor. # Seasonal allergies: Continue Flonase 1 sprays nostril daily. Continue Claritin 10 mg once daily. Will continue to monitor. # Anxiety: Stable mood in office. Continue escitalopram 30 mg once daily. Will continue to monitor. All questions have been answered to patient's satisfaction. Patient verbalized understanding of diagnosis and treatments explained. Advised to call sooner prior to next visit it any questions/concerns arise. Case discussed with collaborating physician Genaro Yang who reviewed the assessment and plan. Chart, medications, labs, vital signs reviewed. Dictation was accomplished with the use of [employer] voice recognition software, which is prone to medical misidentifications and grammatical errors. This are unintentional and the practitioner does try to identify and correct these, but some could still be present. Please do not hesitate to contact practitioner for clarification. 04/24/2024 Seasonal allergies (ICD-10 - J30.2) Patient seen and examined. Comprehensive discussion was done on the following. # Type 2 diabetes: Hemoglobin A1c of 6.7% on 01/07/2024. Continue metformin 1000 mg twice daily. Continue Mounjaro 7.5 mg subcutaneous injection weekly. Continue Farxiga 5 mg daily. Patient has follow-up every 6 months with endocrinology who also manages her diabetes. Discussed importance of diet and lifestyle for management of diabetes. Emphasize importance of annual eye exam and regular feet checks. Will continue to monitor. # Hypertension: Blood pressure stable in office 140/80. At beginning of visit blood pressure was elevated 162/78. Reports compliance with blood pressure medications. Did have a cup of coffee prior to her visit. Asymptomatic without chest pain, shortness of breath, diaphoresis, or dizziness. Continue lisinopril 40 mg daily. Continue metoprolol 50 mg once daily with food. Discussed red flag signs of hypertension. Will continue to monitor. # Hyperlipidemia: Last lipid panel obtained 01/07/2024 with values including cholesterol 185, triglycerides 234, HDL 41, LDL 97, and cholesterol HDL ratio 4.5. Continue fenofibrate 145 mg once daily. Continue atorvastatin 10 mg daily. Will continue to monitor. # Seasonal allergies: Continue Flonase 1 sprays nostril daily. Continue Claritin 10 mg once daily. Will continue to monitor. # Anxiety: Stable mood in office. Continue escitalopram 30 mg once daily. Will continue to monitor. # Myalgia: Patient seen in office for urgent visit on 04/07/2024, reporting left extremity pain for several days. No red flag signs concerning for DVT. Prescribed Celebrex 200 mg 1 capsule with food daily for 10 days. Patient reporting improvement in lower extremity cramping. No longer taking Celebrex however has been using topical magnesium for cramping as well as increasing hydration. Will continue to monitor. # Low back pain: Patient reporting low back pain throughout the day, no particular triggers/patterns and no worsening symptoms. No difficulty with ambulation. No weakness, numbness, or tingling. States that she has orthopedic appointment next week for further evaluation. Will continue to follow. # Multinodular goiter: Patient follows every 6 months with endocrinology. On physical exam enlarged thyroid palpated. Has several stable thyroid nodules, had follow-up with endocrinology in December with repeat ultrasound, will request record. # Anxiety: PHQ-9 administered during visit with score of 18. Patient reporting more predominant anxiety symptoms. She is no longer taking citalopram. Reports minimal support from community. Does have several grandchildren which she experiences anthony from. Reports no SI or HI. She is interested in more natural forms of anxiety treatment. Does use THC as needed for stress relief. We discussed use of cortisone management patient has interest. She states that she will purchase this supplement through [employer] on [address]. She will follow-up in office in 6 months at which time we will reevaluate anxiety. # Abdominal pain: Patient reporting intermittent right-sided abdominal pain along with reflux. On physical exam abdomen is soft to palpation with out significant tenderness in all 4 quadrants. Active bowel sounds appreciated. Patient requesting referral to gastroenterology for further follow-up 1. Nutrition: It is important to follow a healthy diet based on lots of vegetables and legumes and good fat. Avoid processed food and processed carbohydrates. Prepare your own meals. Read labels and avoid high fructose corn syrup, processed chemicals added to increase shelf life and preprepared meals. Avoid fast foods. Eat slowly and plan meals for a week. Try to count calories and be mindful off daily calorie intake. Get into the habit of keeping an eye on your weight by using an appropriate scale. Learn to log exercise and discussed fitness Apps like [employer] or DoYouRememberometer which can help keep log off calories taken versus calories burned. Local food should be preferred. Discussed Dirty Dozen Versus Clean Fifteen. Discussed healthy supplements like fish oil, Tumeric, Curcumin, Melatonin, Resveratrol, Probiotics, Vitamin-D, Alpha-Lipoic acid, Vitamin-D and coconut oil. 2. It is important to exercise regularly. Is a good habit to walk at least 30 minutes a day. Gentle weightlifting with standard precautions to protect the back. Finding activity like cycling or hiking and get into the habit of engaging in it. Stretching before and after the exercises important. It is also important to contact me if there are any problems like shortness of breath, chest pain, back pain and joint or muscle pain associated with the exercise. 3. Discussed age appropriate screening guidelines. Colonoscopy needs to start at age 50 with stool for occult blood as appropriate. There is a new test that can test for genetic abnormalities in the stool sample, Cologuard. This would not replace a colonoscopy but could be used as a screening tool for patients who do not want a colonoscopy. We discussed the importance of early detection of colon cancer. 4. Discussed current guidelines with respect to breast examination, mammogram and pap smear for early detection of breast and cervical cancer. Patient advised to follow up with these appointments. 5. Discussed safe driving and no use of smart phone while driving 6. Age-appropriate immunizations were discussed. A tetanus booster is needed every 10 years. Flu vaccine is recommended every year just before the start of the flu season. Shingles vaccine is recommended after age 50 but not all insurances cover it. Pneumonia vaccine is given after age 65 unless there are certain comorbidities for which it is started earlier. 7. Diagnostic labs were discussed. These could include/not limited to CBC CMP and lipids with fasting blood glucose and insulin levels. Vitamin D and hemoglobin A1c testing might be appropriate. All questions have been answered to patient's satisfaction. Patient verbalized understanding of diagnosis and treatments explained. Advised to call sooner prior to next visit it any questions/concerns arise. Case discussed with collaborating physician Genaro Yang who reviewed the assessment and plan. Chart, medications, labs, vital signs reviewed. Dictation was accomplished with the use of [employer]ie voice recognition software, which is prone to medical misidentifications and grammatical errors. This are unintentional and the practitioner does try to identify and correct these, but some could still be present. Please do not hesitate to contact practitioner for clarification. 04/24/2024 Anxiety (ICD-10 - F41.9) Patient seen and examined. Comprehensive discussion was done on the following. # Type 2 diabetes: Hemoglobin A1c of 6.7% on 01/07/2024. Continue metformin 1000 mg twice daily. Continue Mounjaro 7.5 mg subcutaneous injection weekly. Continue Farxiga 5 mg daily. Patient has follow-up every 6 months with endocrinology who also manages her diabetes. Discussed importance of diet and lifestyle for management of diabetes. Emphasize importance of annual eye exam and regular feet checks. Will continue to monitor. # Hypertension: Blood pressure stable in office 140/80. At beginning of visit blood pressure was elevated 162/78. Reports compliance with blood pressure medications. Did have a cup of coffee prior to her visit. Asymptomatic without chest pain, shortness of breath, diaphoresis, or dizziness. Continue lisinopril 40 mg daily. Continue metoprolol 50 mg once daily with food. Discussed red flag signs of hypertension. Will continue to monitor. # Hyperlipidemia: Last lipid panel obtained 01/07/2024 with values including cholesterol 185, triglycerides 234, HDL 41, LDL 97, and cholesterol HDL ratio 4.5. Continue fenofibrate 145 mg once daily. Continue atorvastatin 10 mg daily. Will continue to monitor. # Seasonal allergies: Continue Flonase 1 sprays nostril daily. Continue Claritin 10 mg once daily. Will continue to monitor. # Anxiety: Stable mood in office. Continue escitalopram 30 mg once daily. Will continue to monitor. # Myalgia: Patient seen in office for urgent visit on 04/07/2024, reporting left extremity pain for several days. No red flag signs concerning for DVT. Prescribed Celebrex 200 mg 1 capsule with food daily for 10 days. Patient reporting improvement in lower extremity cramping. No longer taking Celebrex however has been using topical magnesium for cramping as well as increasing hydration. Will continue to monitor. # Low back pain: Patient reporting low back pain throughout the day, no particular triggers/patterns and no worsening symptoms. No difficulty with ambulation. No weakness, numbness, or tingling. States that she has orthopedic appointment next week for further evaluation. Will continue to follow. # Multinodular goiter: Patient follows every 6 months with endocrinology. On physical exam enlarged thyroid palpated. Has several stable thyroid nodules, had follow-up with endocrinology in December with repeat ultrasound, will request record. # Anxiety: PHQ-9 administered during visit with score of 18. Patient reporting more predominant anxiety symptoms. She is no longer taking citalopram. Reports minimal support from community. Does have several grandchildren which she experiences anthony from. Reports no SI or HI. She is interested in more natural forms of anxiety treatment. Does use THC as needed for stress relief. We discussed use of cortisone management patient has interest. She states that she will purchase this supplement through [employer] on [address]. She will follow-up in office in 6 months at which time we will reevaluate anxiety. # Abdominal pain: Patient reporting intermittent right-sided abdominal pain along with reflux. On physical exam abdomen is soft to palpation with out significant tenderness in all 4 quadrants. Active bowel sounds appreciated. Patient requesting referral to gastroenterology for further follow-up 1. Nutrition: It is important to follow a healthy diet based on lots of vegetables and legumes and good fat. Avoid processed food and processed carbohydrates. Prepare your own meals. Read labels and avoid high fructose corn syrup, processed chemicals added to increase shelf life and preprepared meals. Avoid fast foods. Eat slowly and plan meals for a week. Try to count calories and be mindful off daily calorie intake. Get into the habit of keeping an eye on your weight by using an appropriate scale. Learn to log exercise and discussed fitness Apps like [employer] or DoYouRememberometer which can help keep log off calories taken versus calories burned. Local food should be preferred. Discussed Dirty Dozen Versus Clean Fifteen. Discussed healthy supplements like fish oil, Tumeric, Curcumin, Melatonin, Resveratrol, Probiotics, Vitamin-D, Alpha-Lipoic acid, Vitamin-D and coconut oil. 2. It is important to exercise regularly. Is a good habit to walk at least 30 minutes a day. Gentle weightlifting with standard precautions to protect the back. Finding activity like cycling or hiking and get into the habit of engaging in it. Stretching before and after the exercises important. It is also important to contact me if there are any problems like shortness of breath, chest pain, back pain and joint or muscle pain associated with the exercise. 3. Discussed age appropriate screening guidelines. Colonoscopy needs to start at age 50 with stool for occult blood as appropriate. There is a new test that can test for genetic abnormalities in the stool sample, Cologuard. This would not replace a colonoscopy but could be used as a screening tool for patients who do not want a colonoscopy. We discussed the importance of early detection of colon cancer. 4. Discussed current guidelines with respect to breast examination, mammogram and pap smear for early detection of breast and cervical cancer. Patient advised to follow up with these appointments. 5. Discussed safe driving and no use of smart phone while driving 6. Age-appropriate immunizations were discussed. A tetanus booster is needed every 10 years. Flu vaccine is recommended every year just before the start of the flu season. Shingles vaccine is recommended after age 50 but not all insurances cover it. Pneumonia vaccine is given after age 65 unless there are certain comorbidities for which it is started earlier. 7. Diagnostic labs were discussed. These could include/not limited to CBC CMP and lipids with fasting blood glucose and insulin levels. Vitamin D and hemoglobin A1c testing might be appropriate. All questions have been answered to patient's satisfaction. Patient verbalized understanding of diagnosis and treatments explained. Advised to call sooner prior to next visit it any questions/concerns arise. Case discussed with collaborating physician Genaro Yang who reviewed the assessment and plan. Chart, medications, labs, vital signs reviewed. Dictation was accomplished with the use of [employer] voice recognition software, which is prone to medical misidentifications and grammatical errors. This are unintentional and the practitioner does try to identify and correct these, but some could still be present. Please do not hesitate to contact practitioner for clarification. 10/30/2023 Vitamin D deficiency , unspecified (ICD-10 - E55.9) Patient is here for Chronic Disease Management follow-up visit Acute Concerns/Problem List: 10/30/2023 Stable glycemic index, hemoglobin A1c 6.6 Neurology attributing most of her symptoms and memory issues due to stress and anxiety Will increase citalopram to 30 mg Ativan is seldom used We did complete FMLA paperwork today completing took about 30 minutes from start to finish, chart review coordination of care ASCVD is a stepwise approach for all adult patients, including those with known ASCVD This risk estimate is a standardized guideline to predict risk and recommend management strategies for those at risk of ASCVD Risk of cardiovascular event (Coronary or stroke or nonfatal ND or stroke) In the next 10 years We discussed the role of cholesterol and atherosclerosis. Cholesterols broken down into some particles. Cholesterol very important for her body and has an important role in the synthesis of various hormones and neurotransmitters. However, today's cholesterol can have potential complications. Small density LDL particles that are oxidized or particularly dangerous. HDL cholesterol can have a protective effect. Elevated triglycerides levels are also dangerous. An elevated triglyceride and HDL ratio could be a sign of insulin resistance. Statins, fibrates, niacin, fish oil, DHEA, can be beneficial in treatment of dyslipidemia. Lifestyle modification with exercise and appropriate nutrition can decrease the risk of atherosclerosis due to dyslipidemia. Reviewed with patient the importance of medication and treatment plan compliance with BP goal of less then 140/90 per JNC 8 guidelines based on patient's age. This will ensure optimal health outcomes and prevent target organ damage. Made aware that uncontrolled hypertension may be silent and result in a stroke, heart attack, renal failure or even . Discussed the rationale for individualized medication regimen and the effects of their BP. Instructed to seek emergent care if the patient develops a headache, blurry vision, dizziness, chest pain or pressure. Of note, some information is being carried forward from prior records for informational purposes only and is being cited so that efficiency, safety and quality of the patient's care is not compromised This note was prepared using voice recognition software and direct typing Please excuse inadvertent journeyman sheet metal worker or typing errors, or uncorrected word substitutions Although every attempt has been made by the provider to proofread this document, occasional misspellings and typographical errors may still be present Due to the previous pandemic, and the use of personal protective equipment (PPE) This may decrease voice recognition accuracy Inadvertent journeyman sheet metal worker errors may occur 10/30/2023 Memory loss (ICD-10 - R41.3) Patient is here for Chronic Disease Management follow-up visit Acute Concerns/Problem List: 10/30/2023 Stable glycemic index, hemoglobin A1c 6.6 Neurology attributing most of her symptoms and memory issues due to stress and anxiety Will increase citalopram to 30 mg Ativan is seldom used We did complete [place] paperwork today completing took about 30 minutes from start to finish, chart review coordination of care ASCVD is a stepwise approach for all adult patients, including those with known ASCVD This risk estimate is a standardized guideline to predict risk and recommend management strategies for those at risk of ASCVD Risk of cardiovascular event (Coronary or stroke or nonfatal ND or stroke) In the next 10 years We discussed the role of cholesterol and atherosclerosis. Cholesterols broken down into some particles. Cholesterol very important for her body and has an important role in the synthesis of various hormones and neurotransmitters. However, today's cholesterol can have potential complications. Small density LDL particles that are oxidized or particularly dangerous. HDL cholesterol can have a protective effect. Elevated triglycerides levels are also dangerous. An elevated triglyceride and HDL ratio could be a sign of insulin resistance. Statins, fibrates, niacin, fish oil, DHEA, can be beneficial in treatment of dyslipidemia. Lifestyle modification with exercise and appropriate nutrition can decrease the risk of atherosclerosis due to dyslipidemia. Reviewed with patient the importance of medication and treatment plan compliance with BP goal of less then 140/90 per JNC 8 guidelines based on patient's age. This will ensure optimal health outcomes and prevent target organ damage. Made aware that uncontrolled hypertension may be silent and result in a stroke, heart attack, renal failure or even . Discussed the rationale for individualized medication regimen and the effects of their BP. Instructed to seek emergent care if the patient develops a headache, blurry vision, dizziness, chest pain or pressure. Of note, some information is being carried forward from prior records for informational purposes only and is being cited so that efficiency, safety and quality of the patient's care is not compromised This note was prepared using voice recognition software and direct typing Please excuse inadvertent journeyman sheet metal worker or typing errors, or uncorrected word substitutions Although every attempt has been made by the provider to proofread this document, occasional misspellings and typographical errors may still be present Due to the previous pandemic, and the use of personal protective equipment (PPE) This may decrease voice recognition accuracy Inadvertent journeyman sheet metal worker errors may occur 04/24/2024 Lumbar back pain (ICD-10 - M54.50) Patient seen and examined. Comprehensive discussion was done on the following. # Type 2 diabetes: Hemoglobin A1c of 6.7% on 01/07/2024. Continue metformin 1000 mg twice daily. Continue Mounjaro 7.5 mg subcutaneous injection weekly. Continue Farxiga 5 mg daily. Patient has follow-up every 6 months with endocrinology who also manages her diabetes. Discussed importance of diet and lifestyle for management of diabetes. Emphasize importance of annual eye exam and regular feet checks. Will continue to monitor. # Hypertension: Blood pressure stable in office 140/80. At beginning of visit blood pressure was elevated 162/78. Reports compliance with blood pressure medications. Did have a cup of coffee prior to her visit. Asymptomatic without chest pain, shortness of breath, diaphoresis, or dizziness. Continue lisinopril 40 mg daily. Continue metoprolol 50 mg once daily with food. Discussed red flag signs of hypertension. Will continue to monitor. # Hyperlipidemia: Last lipid panel obtained 01/07/2024 with values including cholesterol 185, triglycerides 234, HDL 41, LDL 97, and cholesterol HDL ratio 4.5. Continue fenofibrate 145 mg once daily. Continue atorvastatin 10 mg daily. Will continue to monitor. # Seasonal allergies: Continue Flonase 1 sprays nostril daily. Continue Claritin 10 mg once daily. Will continue to monitor. # Anxiety: Stable mood in office. Continue escitalopram 30 mg once daily. Will continue to monitor. # Myalgia: Patient seen in office for urgent visit on 04/07/2024, reporting left extremity pain for several days. No red flag signs concerning for DVT. Prescribed Celebrex 200 mg 1 capsule with food daily for 10 days. Patient reporting improvement in lower extremity cramping. No longer taking Celebrex however has been using topical magnesium for cramping as well as increasing hydration. Will continue to monitor. # Low back pain: Patient reporting low back pain throughout the day, no particular triggers/patterns and no worsening symptoms. No difficulty with ambulation. No weakness, numbness, or tingling. States that she has orthopedic appointment next week for further evaluation. Will continue to follow. # Multinodular goiter: Patient follows every 6 months with endocrinology. On physical exam enlarged thyroid palpated. Has several stable thyroid nodules, had follow-up with endocrinology in December with repeat ultrasound, will request record. # Anxiety: PHQ-9 administered during visit with score of 18. Patient reporting more predominant anxiety symptoms. She is no longer taking citalopram. Reports minimal support from community. Does have several grandchildren which she experiences anthony from. Reports no SI or HI. She is interested in more natural forms of anxiety treatment. Does use THC as needed for stress relief. We discussed use of cortisone management patient has interest. She states that she will purchase this supplement through [employer] on [address]. She will follow-up in office in 6 months at which time we will reevaluate anxiety. # Abdominal pain: Patient reporting intermittent right-sided abdominal pain along with reflux. On physical exam abdomen is soft to palpation with out significant tenderness in all 4 quadrants. Active bowel sounds appreciated. Patient requesting referral to gastroenterology for further follow-up 1. Nutrition: It is important to follow a healthy diet based on lots of vegetables and legumes and good fat. Avoid processed food and processed carbohydrates. Prepare your own meals. Read labels and avoid high fructose corn syrup, processed chemicals added to increase shelf life and preprepared meals. Avoid fast foods. Eat slowly and plan meals for a week. Try to count calories and be mindful off daily calorie intake. Get into the habit of keeping an eye on your weight by using an appropriate scale. Learn to log exercise and discussed fitness Apps like [employer] or Cronometer which can help keep log off calories taken versus calories burned. Local food should be preferred. Discussed Dirty Dozen Versus Clean Fifteen. Discussed healthy supplements like fish oil, Tumeric, Curcumin, Melatonin, Resveratrol, Probiotics, Vitamin-D, Alpha-Lipoic acid, Vitamin-D and coconut oil. 2. It is important to exercise regularly. Is a good habit to walk at least 30 minutes a day. Gentle weightlifting with standard precautions to protect the back. Finding activity like cycling or hiking and get into the habit of engaging in it. Stretching before and after the exercises important. It is also important to contact me if there are any problems like shortness of breath, chest pain, back pain and joint or muscle pain associated with the exercise. 3. Discussed age appropriate screening guidelines. Colonoscopy needs to start at age 50 with stool for occult blood as appropriate. There is a new test that can test for genetic abnormalities in the stool sample, Cologuard. This would not replace a colonoscopy but could be used as a screening tool for patients who do not want a colonoscopy. We discussed the importance of early detection of colon cancer. 4. Discussed current guidelines with respect to breast examination, mammogram and pap smear for early detection of breast and cervical cancer. Patient advised to follow up with these appointments. 5. Discussed safe driving and no use of smart phone while driving 6. Age-appropriate immunizations were discussed. A tetanus booster is needed every 10 years. Flu vaccine is recommended every year just before the start of the flu season. Shingles vaccine is recommended after age 50 but not all insurances cover it. Pneumonia vaccine is given after age 65 unless there are certain comorbidities for which it is started earlier. 7. Diagnostic labs were discussed. These could include/not limited to CBC CMP and lipids with fasting blood glucose and insulin levels. Vitamin D and hemoglobin A1c testing might be appropriate. All questions have been answered to patient's satisfaction. Patient verbalized understanding of diagnosis and treatments explained. Advised to call sooner prior to next visit it any questions/concerns arise. Case discussed with collaborating physician Genaro Yang who reviewed the assessment and plan. Chart, medications, labs, vital signs reviewed. Dictation was accomplished with the use of [employer] voice recognition software, which is prone to medical misidentifications and grammatical errors. This are unintentional and the practitioner does try to identify and correct these, but some could still be present. Please do not hesitate to contact practitioner for clarification. 10/30/2023 Paresthesia of left lower extremity (ICD-10 - R20.2) Patient is here for Chronic Disease Management follow-up visit Acute Concerns/Problem List: 10/30/2023 Stable glycemic index, hemoglobin A1c 6.6 Neurology attributing most of her symptoms and memory issues due to stress and anxiety Will increase citalopram to 30 mg Ativan is seldom used We did complete [facility] paperwork today completing took about 30 minutes from start to finish, chart review coordination of care ASCVD is a stepwise approach for all adult patients, including those with known ASCVD This risk estimate is a standardized guideline to predict risk and recommend management strategies for those at risk of ASCVD Risk of cardiovascular event (Coronary or stroke or nonfatal ND or stroke) In the next 10 years We discussed the role of cholesterol and atherosclerosis. Cholesterols broken down into some particles. Cholesterol very important for her body and has an important role in the synthesis of various hormones and neurotransmitters. However, today's cholesterol can have potential complications. Small density LDL particles that are oxidized or particularly dangerous. HDL cholesterol can have a protective effect. Elevated triglycerides levels are also dangerous. An elevated triglyceride and HDL ratio could be a sign of insulin resistance. Statins, fibrates, niacin, fish oil, DHEA, can be beneficial in treatment of dyslipidemia. Lifestyle modification with exercise and appropriate nutrition can decrease the risk of atherosclerosis due to dyslipidemia. Reviewed with patient the importance of medication and treatment plan compliance with BP goal of less then 140/90 per JNC 8 guidelines based on patient's age. This will ensure optimal health outcomes and prevent target organ damage. Made aware that uncontrolled hypertension may be silent and result in a stroke, heart attack, renal failure or even . Discussed the rationale for individualized medication regimen and the effects of their BP. Instructed to seek emergent care if the patient develops a headache, blurry vision, dizziness, chest pain or pressure. Of note, some information is being carried forward from prior records for informational purposes only and is being cited so that efficiency, safety and quality of the patient's care is not compromised This note was prepared using voice recognition software and direct typing Please excuse inadvertent journeyman sheet metal worker or typing errors, or uncorrected word substitutions Although every attempt has been made by the provider to proofread this document, occasional misspellings and typographical errors may still be present Due to the previous pandemic, and the use of personal protective equipment (PPE) This may decrease voice recognition accuracy Inadvertent journeyman sheet metal worker errors may occur 04/24/2024 Generalized abdomina l pain (ICD-10 - R10.84) Patient seen and examined. Comprehensive discussion was done on the following. # Type 2 diabetes: Hemoglobin A1c of 6.7% on 01/07/2024. Continue metformin 1000 mg twice daily. Continue Mounjaro 7.5 mg subcutaneous injection weekly. Continue Farxiga 5 mg daily. Patient has follow-up every 6 months with endocrinology who also manages her diabetes. Discussed importance of diet and lifestyle for management of diabetes. Emphasize importance of annual eye exam and regular feet checks. Will continue to monitor. # Hypertension: Blood pressure stable in office 140/80. At beginning of visit blood pressure was elevated 162/78. Reports compliance with blood pressure medications. Did have a cup of coffee prior to her visit. Asymptomatic without chest pain, shortness of breath, diaphoresis, or dizziness. Continue lisinopril 40 mg daily. Continue metoprolol 50 mg once daily with food. Discussed red flag signs of hypertension. Will continue to monitor. # Hyperlipidemia: Last lipid panel obtained 01/07/2024 with values including cholesterol 185, triglycerides 234, HDL 41, LDL 97, and cholesterol HDL ratio 4.5. Continue fenofibrate 145 mg once daily. Continue atorvastatin 10 mg daily. Will continue to monitor. # Seasonal allergies: Continue Flonase 1 sprays nostril daily. Continue Claritin 10 mg once daily. Will continue to monitor. # Anxiety: Stable mood in office. Continue escitalopram 30 mg once daily. Will continue to monitor. # Myalgia: Patient seen in office for urgent visit on 04/07/2024, reporting left extremity pain for several days. No red flag signs concerning for DVT. Prescribed Celebrex 200 mg 1 capsule with food daily for 10 days. Patient reporting improvement in lower extremity cramping. No longer taking Celebrex however has been using topical magnesium for cramping as well as increasing hydration. Will continue to monitor. # Low back pain: Patient reporting low back pain throughout the day, no particular triggers/patterns and no worsening symptoms. No difficulty with ambulation. No weakness, numbness, or tingling. States that she has orthopedic appointment next week for further evaluation. Will continue to follow. # Multinodular goiter: Patient follows every 6 months with endocrinology. On physical exam enlarged thyroid palpated. Has several stable thyroid nodules, had follow-up with endocrinology in December with repeat ultrasound, will request record. # Anxiety: PHQ-9 administered during visit with score of 18. Patient reporting more predominant anxiety symptoms. She is no longer taking citalopram. Reports minimal support from community. Does have several grandchildren which she experiences anthony from. Reports no SI or HI. She is interested in more natural forms of anxiety treatment. Does use THC as needed for stress relief. We discussed use of cortisone management patient has interest. She states that she will purchase this supplement through [employer] on [employer]. She will follow-up in office in 6 months at which time we will reevaluate anxiety. # Abdominal pain: Patient reporting intermittent right-sided abdominal pain along with reflux. On physical exam abdomen is soft to palpation with out significant tenderness in all 4 quadrants. Active bowel sounds appreciated. Patient requesting referral to gastroenterology for further follow-up 1. Nutrition: It is important to follow a healthy diet based on lots of vegetables and legumes and good fat. Avoid processed food and processed carbohydrates. Prepare your own meals. Read labels and avoid high fructose corn syrup, processed chemicals added to increase shelf life and preprepared meals. Avoid fast foods. Eat slowly and plan meals for a week. Try to count calories and be mindful off daily calorie intake. Get into the habit of keeping an eye on your weight by using an appropriate scale. Learn to log exercise and discussed fitness Apps like [employer] or [employer]Rememberometer which can help keep log off calories taken versus calories burned. Local food should be preferred. Discussed Dirty Dozen Versus Clean Fifteen. Discussed healthy supplements like fish oil, Tumeric, Curcumin, Melatonin, Resveratrol, Probiotics, Vitamin-D, Alpha-Lipoic acid, Vitamin-D and coconut oil. 2. It is important to exercise regularly. Is a good habit to walk at least 30 minutes a day. Gentle weightlifting with standard precautions to protect the back. Finding activity like cycling or hiking and get into the habit of engaging in it. Stretching before and after the exercises important. It is also important to contact me if there are any problems like shortness of breath, chest pain, back pain and joint or muscle pain associated with the exercise. 3. Discussed age appropriate screening guidelines. Colonoscopy needs to start at age 50 with stool for occult blood as appropriate. There is a new test that can test for genetic abnormalities in the stool sample, Cologuard. This would not replace a colonoscopy but could be used as a screening tool for patients who do not want a colonoscopy. We discussed the importance of early detection of colon cancer. 4. Discussed current guidelines with respect to breast examination, mammogram and pap smear for early detection of breast and cervical cancer. Patient advised to follow up with these appointments. 5. Discussed safe driving and no use of smart phone while driving 6. Age-appropriate immunizations were discussed. A tetanus booster is needed every 10 years. Flu vaccine is recommended every year just before the start of the flu season. Shingles vaccine is recommended after age 50 but not all insurances cover it. Pneumonia vaccine is given after age 65 unless there are certain comorbidities for which it is started earlier. 7. Diagnostic labs were discussed. These could include/not limited to CBC CMP and lipids with fasting blood glucose and insulin levels. Vitamin D and hemoglobin A1c testing might be appropriate. All questions have been answered to patient's satisfaction. Patient verbalized understanding of diagnosis and treatments explained. Advised to call sooner prior to next visit it any questions/concerns arise. Case discussed with collaborating physician Genaro Yang who reviewed the assessment and plan. Chart, medications, labs, vital signs reviewed. Dictation was accomplished with the use of [employer]ie voice recognition software, which is prone to medical misidentifications and grammatical errors. This are unintentional and the practitioner does try to identify and correct these, but some could still be present. Please do not hesitate to contact practitioner for clarification. 10/30/2023 Encounter for jelly l adult medical examination without abnormal findings (ICD-10 - Z00.00) Patient is here for Chronic Disease Management follow-up visit Acute Concerns/Problem List: 10/30/2023 Stable glycemic index, hemoglobin A1c 6.6 Neurology attributing most of her symptoms and memory issues due to stress and anxiety Will increase citalopram to 30 mg Ativan is seldom used We did complete FMLA paperwork today completing took about 30 minutes from start to finish, chart review coordination of care ASCVD is a stepwise approach for all adult patients, including those with known ASCVD This risk estimate is a standardized guideline to predict risk and recommend management strategies for those at risk of ASCVD Risk of cardiovascular event (Coronary or stroke or nonfatal ND or stroke) In the next 10 years We discussed the role of cholesterol and atherosclerosis. Cholesterols broken down into some particles. Cholesterol very important for her body and has an important role in the synthesis of various hormones and neurotransmitters. However, today's cholesterol can have potential complications. Small density LDL particles that are oxidized or particularly dangerous. HDL cholesterol can have a protective effect. Elevated triglycerides levels are also dangerous. An elevated triglyceride and HDL ratio could be a sign of insulin resistance. Statins, fibrates, niacin, fish oil, DHEA, can be beneficial in treatment of dyslipidemia. Lifestyle modification with exercise and appropriate nutrition can decrease the risk of atherosclerosis due to dyslipidemia. Reviewed with patient the importance of medication and treatment plan compliance with BP goal of less then 140/90 per JNC 8 guidelines based on patient's age. This will ensure optimal health outcomes and prevent target organ damage. Made aware that uncontrolled hypertension may be silent and result in a stroke, heart attack, renal failure or even . Discussed the rationale for individualized medication regimen and the effects of their BP. Instructed to seek emergent care if the patient develops a headache, blurry vision, dizziness, chest pain or pressure. Of note, some information is being carried forward from prior records for informational purposes only and is being cited so that efficiency, safety and quality of the patient's care is not compromised This note was prepared using voice recognition software and direct typing Please excuse inadvertent journeyman sheet metal worker or typing errors, or uncorrected word substitutions Although every attempt has been made by the provider to proofread this document, occasional misspellings and typographical errors may still be present Due to the previous pandemic, and the use of personal protective equipment (PPE) This may decrease voice recognition accuracy Inadvertent journeyman sheet metal worker errors may occur 04/24/2024 Depression screening (ICD-10 - Z13.31) Patient seen and examined. Comprehensive discussion was done on the following. # Type 2 diabetes: Hemoglobin A1c of 6.7% on 01/07/2024. Continue metformin 1000 mg twice daily. Continue Mounjaro 7.5 mg subcutaneous injection weekly. Continue Farxiga 5 mg daily. Patient has follow-up every 6 months with endocrinology who also manages her diabetes. Discussed importance of diet and lifestyle for management of diabetes. Emphasize importance of annual eye exam and regular feet checks. Will continue to monitor. # Hypertension: Blood pressure stable in office 140/80. At beginning of visit blood pressure was elevated 162/78. Reports compliance with blood pressure medications. Did have a cup of coffee prior to her visit. Asymptomatic without chest pain, shortness of breath, diaphoresis, or dizziness. Continue lisinopril 40 mg daily. Continue metoprolol 50 mg once daily with food. Discussed red flag signs of hypertension. Will continue to monitor. # Hyperlipidemia: Last lipid panel obtained 01/07/2024 with values including cholesterol 185, triglycerides 234, HDL 41, LDL 97, and cholesterol HDL ratio 4.5. Continue fenofibrate 145 mg once daily. Continue atorvastatin 10 mg daily. Will continue to monitor. # Seasonal allergies: Continue Flonase 1 sprays nostril daily. Continue Claritin 10 mg once daily. Will continue to monitor. # Anxiety: Stable mood in office. Continue escitalopram 30 mg once daily. Will continue to monitor. # Myalgia: Patient seen in office for urgent visit on 04/07/2024, reporting left extremity pain for several days. No red flag signs concerning for DVT. Prescribed Celebrex 200 mg 1 capsule with food daily for 10 days. Patient reporting improvement in lower extremity cramping. No longer taking Celebrex however has been using topical magnesium for cramping as well as increasing hydration. Will continue to monitor. # Low back pain: Patient reporting low back pain throughout the day, no particular triggers/patterns and no worsening symptoms. No difficulty with ambulation. No weakness, numbness, or tingling. States that she has orthopedic appointment next week for further evaluation. Will continue to follow. # Multinodular goiter: Patient follows every 6 months with endocrinology. On physical exam enlarged thyroid palpated. Has several stable thyroid nodules, had follow-up with endocrinology in December with repeat ultrasound, will request record. # Anxiety: PHQ-9 administered during visit with score of 18. Patient reporting more predominant anxiety symptoms. She is no longer taking citalopram. Reports minimal support from community. Does have several grandchildren which she experiences anthony from. Reports no SI or HI. She is interested in more natural forms of anxiety treatment. Does use THC as needed for stress relief. We discussed use of cortisone management patient has interest. She states that she will purchase this supplement through [employer] on [address]. She will follow-up in office in 6 months at which time we will reevaluate anxiety. # Abdominal pain: Patient reporting intermittent right-sided abdominal pain along with reflux. On physical exam abdomen is soft to palpation with out significant tenderness in all 4 quadrants. Active bowel sounds appreciated. Patient requesting referral to gastroenterology for further follow-up 1. Nutrition: It is important to follow a healthy diet based on lots of vegetables and legumes and good fat. Avoid processed food and processed carbohydrates. Prepare your own meals. Read labels and avoid high fructose corn syrup, processed chemicals added to increase shelf life and preprepared meals. Avoid fast foods. Eat slowly and plan meals for a week. Try to count calories and be mindful off daily calorie intake. Get into the habit of keeping an eye on your weight by using an appropriate scale. Learn to log exercise and discussed fitness Apps like [employer] or DoYouRememberometer which can help keep log off calories taken versus calories burned. Local food should be preferred. Discussed Dirty Dozen Vers[employer] Clean Fifteen. Discussed healthy supplements like fish oil, Tumeric, Curcumin, Melatonin, Resveratrol, Probiotics, Vitamin-D, Alpha-Lipoic acid, Vitamin-D and coconut oil. 2. It is important to exercise regularly. Is a good habit to walk at least 30 minutes a day. Gentle weightlifting with standard precautions to protect the back. Finding activity like cycling or hiking and get into the habit of engaging in it. Stretching before and after the exercises important. It is also important to contact me if there are any problems like shortness of breath, chest pain, back pain and joint or muscle pain associated with the exercise. 3. Discussed age appropriate screening guidelines. Colonoscopy needs to start at age 50 with stool for occult blood as appropriate. There is a new test that can test for genetic abnormalities in the stool sample, Cologuard. This would not replace a colonoscopy but could be used as a screening tool for patients who do not want a colonoscopy. We discussed the importance of early detection of colon cancer. 4. Discussed current guidelines with respect to breast examination, mammogram and pap smear for early detection of breast and cervical cancer. Patient advised to follow up with these appointments. 5. Discussed safe driving and no use of smart phone while driving 6. Age-appropriate immunizations were discussed. A tetanus booster is needed every 10 years. Flu vaccine is recommended every year just before the start of the flu season. Shingles vaccine is recommended after age 50 but not all insurances cover it. Pneumonia vaccine is given after age 65 unless there are certain comorbidities for which it is started earlier. 7. Diagnostic labs were discussed. These could include/not limited to CBC CMP and lipids with fasting blood glucose and insulin levels. Vitamin D and hemoglobin A1c testing might be appropriate. All questions have been answered to patient's satisfaction. Patient verbalized understanding of diagnosis and treatments explained. Advised to call sooner prior to next visit it any questions/concerns arise. Case discussed with collaborating physician Genaro Yang who reviewed the assessment and plan. Chart, medications, labs, vital signs reviewed. Dictation was accomplished with the use of [employer] voice recognition software, which is prone to medical misidentifications and grammatical errors. This are unintentional and the practitioner does try to identify and correct these, but some could still be present. Please do not hesitate to contact practitioner for clarification. 04/24/2024 Screening for substance abuse (ICD-10 - Z13.89) Patient seen and examined. Comprehensive discussion was done on the following. # Type 2 diabetes: Hemoglobin A1c of 6.7% on 01/07/2024. Continue metformin 1000 mg twice daily. Continue Mounjaro 7.5 mg subcutaneous injection weekly. Continue Farxiga 5 mg daily. Patient has follow-up every 6 months with endocrinology who also manages her diabetes. Discussed importance of diet and lifestyle for management of diabetes. Emphasize importance of annual eye exam and regular feet checks. Will continue to monitor. # Hypertension: Blood pressure stable in office 140/80. At beginning of visit blood pressure was elevated 162/78. Reports compliance with blood pressure medications. Did have a cup of coffee prior to her visit. Asymptomatic without chest pain, shortness of breath, diaphoresis, or dizziness. Continue lisinopril 40 mg daily. Continue metoprolol 50 mg once daily with food. Discussed red flag signs of hypertension. Will continue to monitor. # Hyperlipidemia: Last lipid panel obtained 01/07/2024 with values including cholesterol 185, triglycerides 234, HDL 41, LDL 97, and cholesterol HDL ratio 4.5. Continue fenofibrate 145 mg once daily. Continue atorvastatin 10 mg daily. Will continue to monitor. # Seasonal allergies: Continue Flonase 1 sprays nostril daily. Continue Claritin 10 mg once daily. Will continue to monitor. # Anxiety: Stable mood in office. Continue escitalopram 30 mg once daily. Will continue to monitor. # Myalgia: Patient seen in office for urgent visit on 04/07/2024, reporting left extremity pain for several days. No red flag signs concerning for DVT. Prescribed Celebrex 200 mg 1 capsule with food daily for 10 days. Patient reporting improvement in lower extremity cramping. No longer taking Celebrex however has been using topical magnesium for cramping as well as increasing hydration. Will continue to monitor. # Low back pain: Patient reporting low back pain throughout the day, no particular triggers/patterns and no worsening symptoms. No difficulty with ambulation. No weakness, numbness, or tingling. States that she has orthopedic appointment next week for further evaluation. Will continue to follow. # Multinodular goiter: Patient follows every 6 months with endocrinology. On physical exam enlarged thyroid palpated. Has several stable thyroid nodules, had follow-up with endocrinology in December with repeat ultrasound, will request record. # Anxiety: PHQ-9 administered during visit with score of 18. Patient reporting more predominant anxiety symptoms. She is no longer taking citalopram. Reports minimal support from community. Does have several grandchildren which she experiences anthony from. Reports no SI or HI. She is interested in more natural forms of anxiety treatment. Does use THC as needed for stress relief. We discussed use of cortisone management patient has interest. She states that she will purchase this supplement through [employer] on [address]. She will follow-up in office in 6 months at which time we will reevaluate anxiety. # Abdominal pain: Patient reporting intermittent right-sided abdominal pain along with reflux. On physical exam abdomen is soft to palpation with out significant tenderness in all 4 quadrants. Active bowel sounds appreciated. Patient requesting referral to gastroenterology for further follow-up 1. Nutrition: It is important to follow a healthy diet based on lots of vegetables and legumes and good fat. Avoid processed food and processed carbohydrates. Prepare your own meals. Read labels and avoid high fructose corn syrup, processed chemicals added to increase shelf life and preprepared meals. Avoid fast foods. Eat slowly and plan meals for a week. Try to count calories and be mindful off daily calorie intake. Get into the habit of keeping an eye on your weight by using an appropriate scale. Learn to log exercise and discussed fitness Apps like [employer] or DoYouRememberometer which can help keep log off calories taken versus calories burned. Local food should be preferred. Discussed Dirty Dozen Versus Clean Fifteen. Discussed healthy supplements like fish oil, Tumeric, Curcumin, Melatonin, Resveratrol, Probiotics, Vitamin-D, Alpha-Lipoic acid, Vitamin-D and coconut oil. 2. It is important to exercise regularly. Is a good habit to walk at least 30 minutes a day. Gentle weightlifting with standard precautions to protect the back. Finding activity like cycling or hiking and get into the habit of engaging in it. Stretching before and after the exercises important. It is also important to contact me if there are any problems like shortness of breath, chest pain, back pain and joint or muscle pain associated with the exercise. 3. Discussed age appropriate screening guidelines. Colonoscopy needs to start at age 50 with stool for occult blood as appropriate. There is a new test that can test for genetic abnormalities in the stool sample, Cologuard. This would not replace a colonoscopy but could be used as a screening tool for patients who do not want a colonoscopy. We discussed the importance of early detection of colon cancer. 4. Discussed current guidelines with respect to breast examination, mammogram and pap smear for early detection of breast and cervical cancer. Patient advised to follow up with these appointments. 5. Discussed safe driving and no use of smart phone while driving 6. Age-appropriate immunizations were discussed. A tetanus booster is needed every 10 years. Flu vaccine is recommended every year just before the start of the flu season. Shingles vaccine is recommended after age 50 but not all insurances cover it. Pneumonia vaccine is given after age 65 unless there are certain comorbidities for which it is started earlier. 7. Diagnostic labs were discussed. These could include/not limited to CBC CMP and lipids with fasting blood glucose and insulin levels. Vitamin D and hemoglobin A1c testing might be appropriate. All questions have been answered to patient's satisfaction. Patient verbalized understanding of diagnosis and treatments explained. Advised to call sooner prior to next visit it any questions/concerns arise. Case discussed with collaborating physician Genaro Yang who reviewed the assessment and plan. Chart, medications, labs, vital signs reviewed. Dictation was accomplished with the use of [employer] voice recognition software, which is prone to medical misidentifications and grammatical errors. This are unintentional and the practitioner does try to identify and correct these, but some could still be present. Please do not hesitate to contact practitioner for clarification. 10/30/2023 Encounter for screening for other suspected endocrine disorder (ICD-10 - Z13.29) Patient is here for Chronic Disease Management follow-up visit Acute Concerns/Problem List: 10/30/2023 Stable glycemic index, hemoglobin A1c 6.6 Neurology attributing most of her symptoms and memory issues due to stress and anxiety Will increase citalopram to 30 mg Ativan is seldom used We did complete [place] paperwork today completing took about 30 minutes from start to finish, chart review coordination of care ASCVD is a stepwise approach for all adult patients, including those with known ASCVD This risk estimate is a standardized guideline to predict risk and recommend management strategies for those at risk of ASCVD Risk of cardiovascular event (Coronary or stroke or nonfatal ND or stroke) In the next 10 years We discussed the role of cholesterol and atherosclerosis. Cholesterols broken down into some particles. Cholesterol very important for her body and has an important role in the synthesis of various hormones and neurotransmitters. However, today's cholesterol can have potential complications. Small density LDL particles that are oxidized or particularly dangerous. HDL cholesterol can have a protective effect. Elevated triglycerides levels are also dangerous. An elevated triglyceride and HDL ratio could be a sign of insulin resistance. Statins, fibrates, niacin, fish oil, DHEA, can be beneficial in treatment of dyslipidemia. Lifestyle modification with exercise and appropriate nutrition can decrease the risk of atherosclerosis due to dyslipidemia. Reviewed with patient the importance of medication and treatment plan compliance with BP goal of less then 140/90 per JNC 8 guidelines based on patient's age. This will ensure optimal health outcomes and prevent target organ damage. Made aware that uncontrolled hypertension may be silent and result in a stroke, heart attack, renal failure or even . Discussed the rationale for individualized medication regimen and the effects of their BP. Instructed to seek emergent care if the patient develops a headache, blurry vision, dizziness, chest pain or pressure. Of note, some information is being carried forward from prior records for informational purposes only and is being cited so that efficiency, safety and quality of the patient's care is not compromised This note was prepared using voice recognition software and direct typing Please excuse inadvertent journeyman sheet metal worker or typing errors, or uncorrected word substitutions Although every attempt has been made by the provider to proofread this document, occasional misspellings and typographical errors may still be present Due to the previous pandemic, and the use of personal protective equipment (PPE) This may decrease voice recognition accuracy Inadvertent journeyman sheet metal worker errors may occur Plan Of Treatment Pending Test Test Name Order Date X ray : Knee, left 02/16/2022 X ray : Shoulder, right 02/28/2023 Echocardiogram 03/25/2020 X ray : Chest with 2 views 01/01/2023 X ray : Spines, cervical [address] Abdomen and Pelvis 02/06/2018 MRI : Brain without Contrast 09/07/2023 EKG 07/08/2019 25OH VITAMIN D 12/07/2019 25OH VITAMIN D 05/31/2020 25OH VITAMIN D 06/27/2021 AMYLASE 02/06/2018 CBC (COMPLETE BLOOD COUNT) 02/06/2018 CBC (COMPLETE BLOOD COUNT) 06/27/2021 CBC (COMPLETE BLOOD COUNT) 12/07/2019 CBC (COMPLETE BLOOD COUNT) WITH DIFF COMPREHENSIVE METABOLIC PANEL 10/30/2023 COMPREHENSIVE METABOLIC PANEL 02/06/2018 COMPREHENSIVE METABOLIC PANEL 12/07/2019 COMPREHENSIVE METABOLIC PANEL 05/31/2020 HEMOGLOBIN A1C 01/10/2023 HEMOGLOBIN A1C 12/07/2019 HEMOGLOBIN A1C 10/30/2023 LIPASE 02/06/2018 LIPID PANEL 10/30/2023 LIPID PANEL 03/21/2022 LIPID PANEL 06/27/2021 LIPID PANEL 12/07/2019 LIPID PANEL 01/10/2023 LIPID PANEL 05/31/2020 MICROALBUMIN, URINE 06/27/2021 T4, FREE 12/07/2019 TSH 12/07/2019 TSH 10/30/2023 URINALYSIS, COMPLETE 12/07/2019 VITAMIN B12 12/07/2019 VITAMIN B12 05/31/2020 XR Foot 3+ Views LT 08/09/2020 COMPREHENSIVE METABOLIC PANEL 09/07/2023 CBC (INCLUDES DIFF/PLT) 09/07/2023 URINALYSIS, COMPLETE 10/30/2023 VITAMIN B12 09/07/2023 TSH 09/07/2023 METHYLMALONIC ACID 09/07/2023 VITAMIN D, 1,25 DIHYDROXY LC/MS/MS 10/29 US Carotid Duplex Bilat Complt RPR TITER 09/07/2023 Future Test Test Name Order Date 25OH VITAMIN D 09/12/2022 CBC (COMPLETE BLOOD COUNT) WITH DIFF 02/2023 COMPREHENSIVE METABOLIC PANEL 09/12/2022 HEMOGLOBIN A1C 09/12/2022 LIPID PANEL 09/12/2022 TSH WITH REFLEX TO FT4 09/12/2022 URINALYSIS W/REFLEX CULTURE 09/12/2022 VITAMIN B12 09/12/2022 Next Appt Details Provider Name:ZHANE VILLEDA, 10/22/2024 11:00:00 AM, [address] [facility], [facility] [address], [place], [address], Insurance Providers Payer Name Payer Address Payer Phone Subscriber Number Group Number Insured Name Patient Relationship to Insured Coverage Start Date Coverage End Date [facility] [address] [place] [address] [id number] ANNETTE JOHNSON Self - patient is the insured Medical (General) History Medical History History ICD Code Diabetes mellitus of other t ype without complication, unspecified whether ad terminal makeup operator insulin use E13.9 Anxiety F41.9 Osteoarthritis of knee, unspecified M17. 9 Hyperlipidemia, unspecified E78.5 Seasonal allergies J30.2 Hypothyroidism, unspecified E03.9 Essential hypertension I10 Surgical History Surgery Date(Month/Year) hysterectomy cholecystectomy carpal tunnel release colonoscopy 2011 pap smear is due 2019
[2024-08-25 10:06] LABS: MANUAL DIFF FLAG NO
[2024-08-25 10:10] LABS: Basophils Absolute Auto 0.1 X10*3/uL (0.0-0.2); Basophils Percent Auto 0.7 % (0-2); Eosinophils Absolute Auto 0.2 X10*3/uL (0.0-0.4); Eosinophils Percent Auto 3.3 % (0-4); Hematocrit 44.4 % (37.0-47.0); Hemoglobin 14.2 g/dl (12.0-16.0); Imm Gran Abs Auto 0.02 X10*3/uL (0.00-0.03); Imm Gran Pct Auto 0.3 % (0.0-0.4); Lymphocytes Percent Auto 41.3 % (20-40); Mean Corpuscular Hemoglobin 27.9 pg (27.0-33.0); Mean Corpuscular Volume 87.2 fL (80.0-98.0); Mean Platelet Volume 10.6 fL (9.4-12.3); Monocytes Absolute Auto 0.6 X10*3/uL (0.1-1.2); Monocytes Percent Auto 8.6 % (2-11); Neutrophils Absolute Auto 3.3 x10*3/uL (2.0-8.3); Neutrophils Percent Auto 45.8 % (45-73); Platelet Count 290 X10*3/uL (160-400); Red Blood Count 5.09 X10*6/uL (4.20-5.50); Red Cell Distribution Width 13.3 % (11.0-16.0); White Blood Count 7.2 X10*3/uL (4.8-10.8)
[2024-08-25 10:16] LABS: Estimated Average Glucose 163 mg/dL; Hemoglobin A1C 208.4191 umol/L; Hemoglobin A1c % 7.3 % (<6.0); Total Hemoglobin (HGBA1C) 3709.7516 umol/L
[2024-08-25 10:28] LABS: Alanine Aminotransferase 32 U/L (0-31); Albumin Level 4.4 g/dL (3.5-5.0); Alkaline Phosphatase 44 U/L (39-117); Anion Gap 12 (12-20); Aspartate Amino Transferase 23 U/L (5-31); Bilirubin Total 0.3 mg/dL (0.0-1.0); Blood Urea Nitrogen 23 mg/dL (9-16); Calcium 10.1 mg/dL (8.4-10.2); Carbon Dioxide 25 mmol/L (22-29); Chloride 106 mmol/L (96-108); Cholesterol 193 mg/dL (<200); Estimated Glomerular Filt Rate > 60; Glucose Random 153 mg/dL (60-115); HDL Cholesterol 40 mg/dL (>40); LDL Cholesterol Calculated 101 mg/dL (<100); Potassium 4.3 mmol/L (3.3-5.1); Sodium 139 mmol/L (135-145); Total Protein 6.9 g/dL (6.5-8.0); Triglycerides 261 mg/dL (<150)
[2024-08-25 10:30] LABS: Appearance Urine Clear; Color Urine Yellow; Glucose Urine UA >=1000 mg/dL (Negative); Leukocyte Esterase Urine Negative (Negative); Nitrite Urine Negative (Negative); Specific Gravity - Urine >= 1.030 (1.005-1.025); UMIC TRIGGER UA YES; Urine Blood Negative (Negative); Urine Ketones Negative (Negative); Urine Protein Negative (Neg-Trace)
[2024-08-25 10:37] LABS: Bacteria Urine None Seen (None Seen); Hyaline Casts Urine 0-2 /LPF (0-2); RBC Urine 0-2 /HPF (0-2); Squamous Epithelial Cell Urine 0-2 /HPF (0-2); WBC Urine 0-5 /HPF (0-5)
[2024-08-25 10:39] LABS: Thyroid Stimulating Hormone 0.79 uIU/mL (0.32-4.0)
[2024-08-25 10:52] LABS: Vitamin B12 549 pg/mL (200-900)
[2024-08-25 11:12] LABS: Creatinine Urine 61.24 mg/dL; Microalbum/Creatinine Ratio Ur 53.8 ug/mg cr (<30)
[2024-08-30 11:59] LABS: VITAMIN D (1,25 OH) D3 34 pg/mL; Vit D (1,25-Dihydroxy) Total 34 pg/mL (18-72); Vitamin D (1,25 OH) D2 <8 pg/mL
== END 2024-08-25 08:00 | disposition home or self-care (01) ==
LOC: HO.HMGCLDS 07:59
PROVIDERS: Absent Provider Nurse Practitioner Acute Care; PCP Internal Medicine; Visit Provider Internal Medicine
DX: Z00.00 Encounter for general adult medical examination without abnormal findings (principal); E11.21 Type 2 diabetes mellitus with diabetic nephropathy; E78.2 Mixed hyperlipidemia; E78.5 Hyperlipidemia, unspecified; E55.9 Vitamin D deficiency, unspecified; Z13.29 Encounter for screening for other suspected endocrine disorder
CPT/HCPCS: 36415; 80053; 80061; 81001; 82043; 82570; 82607; 82652; 83036; 84443; 85025